=== PATIENT | female | born 1970 ===

== ENCOUNTER 2020-08-13 13:29 | Outpatient (REF) | payer OTHER, SELFPAY | END 2020-08-13 13:30 | disposition home or self-care (01) | LOC: HO.LAB 13:29 | PROVIDERS: Visit Provider Internal Medicine | DX: Z20.828 Contact with and (suspected) exposure to other viral communicable diseases (principal) | CPT/HCPCS: C9803; U0003 ==

== ENCOUNTER 2021-03-09 10:52 | Outpatient (REF) | payer OTHER, SELFPAY ==
--- NOTE | ~2021-03-09 | MM_ITS ---
EXAMINATION: MM SCREENING DIGITAL BREAST TOMOSYNTHESIS, BILATERAL CLINICAL INFORMATION: Screening. Asymptomatic. The lifetime risk of breast cancer based on the Tyrer-Cuzick Model is 7.5%. COMPARISON: Mammography: 10/09/2018 TECHNIQUE: Digital breast tomosynthesis is performed in both the craniocaudal and mediolateral oblique views along with computer-aided detection (CAD). Synthesized 2-D images are generated from the tomosynthesis. FINDINGS: The breasts are heterogeneously dense, which may obscure small masses (ACR BI-RADS breast composition Category c). No specific suspicious dominant mass or grouping of microcalcifications within the left breast is identified. Within the right breast, there are groupings of calcifications seen about the anterior aspect superiorly for which spot magnification views in craniocaudal and 90 degree mediolateral views are recommended. MM/MM tomosynthesis screening BI IMPRESSION: Right breast calcifications for further evaluation. ASSESSMENT: BI-RADS 0: Incomplete - Need Additional Imaging Evaluation. RECOMMENDATION: Spot magnification views anterior aspect of the right breast in craniocaudal and 90 degree mediolateral views. This patient's information was entered into a reminder system with a target due date for their next mammogram.
== END 2021-03-09 10:53 | disposition home or self-care (01) ==
LOC: HO.MAMMO 10:52
PROVIDERS: PCP Physician Assistant; Visit Provider Physician Assistant
DX: Z12.31 Encounter for screening mammogram for malignant neoplasm of breast (principal)
CPT/HCPCS: 77063; 77067

== ENCOUNTER 2021-04-19 21:50 | Emergency (ER) | payer OTHER, SELFPAY ==
[2021-04-19 21:59] VITALS: BP 160/70; PULSE 72; RESP 16; TEMP 37.1; O2SAT 98; BMI 30.9
== END 2021-04-19 23:50 | disposition left against medical advice (07) ==
PROVIDERS: Emergency Provider Emergency Medicine; PCP Physician Assistant
DX: R07.89 Other chest pain (principal)
CPT/HCPCS: 99282

== ENCOUNTER 2021-05-13 07:33 | Outpatient (REF) | payer OTHER, SELFPAY ==
[2021-05-13 08:12] LABS: Hematocrit 46.4 % (37-47); Hemoglobin 15.1 g/dl (12.0-16.0); Mean Corpuscular HGB Conc 32.5 g/dl (31.0-35.0); Mean Corpuscular Hemoglobin 29.4 pg (27.0-33.0); Mean Corpuscular Volume 90.4 fL (80-98); Mean Platelet Volume 9.2 fL (9.4-12.3); Platelet Count 214 X10*3/uL (160-400); Red Blood Count 5.13 X10*6/uL (4.20-5.50); Red Cell Distribution Width 12.8 % (11.0-16.0); White Blood Count 6.5 X10*3/uL (4.8-10.8)
[2021-05-13 08:34] LABS: Alanine Aminotransferase 16 U/L (0-31); Albumin Level 4.5 g/dL (3.5-5.0); Alkaline Phosphatase 52 U/L (39-117); Anion Gap 13 (12-20); Aspartate Amino Transferase 20 U/L (5-31); Bilirubin Total 0.4 mg/dL (0.0-1.0); Blood Urea Nitrogen 11 mg/dL (9-16); Calcium 9.8 mg/dL (8.4-10.2); Carbon Dioxide 29 mmol/L (22-29); Chloride 103 mmol/L (96-108); Cholesterol 193 mg/dL; Estimated Glomerular Filt Rate > 60; Glucose Fasting 112 mg/dL (60-99); HDL Cholesterol 38 mg/dL; Iron 102 mcg/dL (30-160); LDL Cholesterol Calculated 124 mg/dl; Percent Iron Saturation 34 % (15-50); Potassium 4.7 mmol/L (3.3-5.1); Sodium 140 mmol/L (135-145); Total Iron Binding Capacity 299 mcg/dL (228-428); Total Protein 6.8 g/dL (6.5-8.0); Triglycerides 157 mg/dL; Unsaturated Iron Binding 197 ug/dL
[2021-05-13 08:57] LABS: TSH reflex Free T4 2.77 uIU/mL (0.32-4.0); Vitamin D 25-OH Total 35.1 ng/mL (>30)
[2021-05-13 10:16] LABS: Creatinine Urine 38.49 mg/dL; Microalbumin Urine < 5.0 mg/L
[2021-05-15 05:42] LABS: Lyme Blot 0.97 index
[2021-05-15 11:27] LABS: Lyme Abs Screen EQUIVOCAL
[2021-05-18 17:11] LABS: 18 KD (IgG) Band NON-REACTIVE; 23 KD (IgG) Band NON-REACTIVE; 23 KD (IgM) Band REACTIVE; 28 KD (IgG) Band NON-REACTIVE; 30 KD (IgG) Band NON-REACTIVE; 39 KD (IgM) Band NON-REACTIVE; 41 KD (IgM) Band NON-REACTIVE; 45 KD (IgG) Band NON-REACTIVE; 58 KD (IgG) Band NON-REACTIVE; 66 KD (IgG) Band NON-REACTIVE; 93 KD (IgG) Band NON-REACTIVE; Lyme IgG Blot Interp NEGATIVE (NEGATIVE); Lyme IgM Blot Interp NEGATIVE (NEGATIVE)
== END 2021-05-13 07:34 | disposition home or self-care (01) ==
LOC: HO.LAB 07:33
PROVIDERS: Absent Provider Physician Assistant; PCP Physician Assistant; Visit Provider Nurse Practitioner Family
DX: Z01.84 Encounter for antibody response examination (principal); E78.5 Hyperlipidemia, unspecified; D50.9 Iron deficiency anemia, unspecified; E03.9 Hypothyroidism, unspecified; I10 Essential (primary) hypertension; R21 Rash and other nonspecific skin eruption
CPT/HCPCS: 36415; 80053; 80061; 82043; 82306; 83540; 84443; 85027; 86617; 86618

== ENCOUNTER 2021-06-13 10:02 | Outpatient (REF) | payer OTHER, SELFPAY ==
[2021-06-15 01:16] LABS: Lyme Abs Screen <0.90 index
== END 2021-06-13 10:03 | disposition home or self-care (01) ==
LOC: HO.LAB 10:02
PROVIDERS: PCP Physician Assistant; Visit Provider Nurse Practitioner Family
DX: R21 Rash and other nonspecific skin eruption (principal)
CPT/HCPCS: 36415; 86617; 86618

== ENCOUNTER 2021-10-13 10:39 | Emergency (ER) | payer OTHER, SELFPAY ==
--- NOTE | ~2021-10-13 | XR_ITS ---
EXAMINATION: XR CHEST CLINICAL INFORMATION: Pain, trauma. COMPARISON: None TECHNIQUE: 2 views of the chest were obtained. FINDINGS: Normal appearance of the cardiomediastinal silhouette. No focal airspace opacities, pleural effusions or pneumothorax. No acute osseous abnormalities. Soft tissue calcifications adjacent to the insertion site of the right supraspinatus tendon. XR/XR chest 2V IMPRESSION: No acute cardiopulmonary findings. No definite acute displaced osseous fractures. Soft tissue calcifications in the right shoulder suggesting the presence of calcific tendinosis. Correlate clinically.
[2021-10-13 10:52] VITALS: BP 142/72; PULSE 73; RESP 18; TEMP 36.3; O2SAT 100
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
== END 2021-10-13 11:52 | disposition home or self-care (01) ==
PROVIDERS: Emergency Provider Emergency Medicine; PCP Physician Assistant
DX: S16.1XXA Strain of muscle, fascia and tendon at neck level, initial encounter (principal); S20.212A Contusion of left front wall of thorax, initial encounter; V43.52XA Car driver injured in collision with other type car in traffic accident, initial encounter; I10 Essential (primary) hypertension; E78.5 Hyperlipidemia, unspecified; F17.200 Nicotine dependence, unspecified, uncomplicated; Y93.89 Activity, other specified; Y92.410 Unspecified street and highway as the place of occurrence of the external cause; Y99.9 Unspecified external cause status; R93.89 Abnormal findings on diagnostic imaging of other specified body structures; M75.31 Calcific tendinitis of right shoulder; Z79.02 Long term (current) use of antithrombotics/antiplatelets
CPT/HCPCS: 71046; 99283

== ENCOUNTER 2021-10-17 08:30 | Outpatient (RCR) | payer OTHER, SELFPAY ==
--- NOTE | 2021-10-17 09:57 | MHC.OT.DC ---
[address] [phone] F: [phone] Occupational Therapy Discharge Note Provider: Sky Gamboa MD Diagnosis: Left Dequervains tenosynovitis Date of Surgery: Date of Evaluation: 10/05/21 Date of Discharge: 10/17/21 Treatments to Date: 4 Cancellations to Date: 0 No Shows to Date: 0 Discharge Status: Patient Elected to Stop Recommend MD Follow-up Discharge Summary: t reports pain now more localized to wrist. Pt required re instruction and practice with ther ex,ROM and eccentric ex She has a forearm based thumb spica and has been instructed on wrist protection techniques with daily activities PT preferring to D/C OT , follow HEP for a week and call MD if not improved. Pain improved for 7 to 4 and now more localized to radial wrist. Electronically Signed By: Madelyn Squires OT CHT CLT Reviewed/agree with student documentation: N/A Therapist: Please Sign and return to therapist, thank you for your referral.
== END 2021-10-17 09:57 | disposition home or self-care (01) ==
LOC: HO.OT 08:30
PROVIDERS: PCP Physician Assistant; Visit Provider Internal Medicine
DX: M65.4 Radial styloid tenosynovitis [de Quervain] (principal)
CPT/HCPCS: 97033; 97035; 97110; 97165

== ENCOUNTER → 2021-11-16 11:03 | Outpatient (BNVA) | payer OTHER, SELFPAY | PROVIDERS: PCP Physician Assistant; Visit Provider Orthopaedic Surgery | DX: M65.4 Radial styloid tenosynovitis [de Quervain] (principal) | CPT/HCPCS: 20550; 99202; J1100 ==

== ENCOUNTER → 2021-12-14 11:35 | Outpatient (BNVA) | payer OTHER, SELFPAY | PROVIDERS: PCP Internal Medicine; Visit Provider Orthopaedic Surgery | DX: M65.4 Radial styloid tenosynovitis [de Quervain] (principal) | CPT/HCPCS: 99212 ==

== ENCOUNTER 2022-01-05 11:30 | Outpatient (REF) | payer OTHER, SELFPAY ==
--- NOTE | ~2022-01-05 | XR_ITS ---
EXAMINATION: XR HAND, LEFT. XR WRIST, LEFT. CLINICAL INFORMATION: Left hand/wrist pain COMPARISON: None TECHNIQUE: 3 views of the left hand and 4 views of the left wrist FINDINGS: Normal alignment. No fracture. No periarticular osteopenia, active erosions, or suspicious soft tissue calcifications. There are mild degenerative changes of the interphalangeal joints and the 1st CMC joint. XR/XR hand wrist LT IMPRESSION: Mild degenerative changes with no acute osseous abnormality or evidence of an active inflammatory arthritis.
== END 2022-01-05 11:31 | disposition home or self-care (01) ==
LOC: HO.XRAY 11:30
PROVIDERS: PCP Physician Assistant; Visit Provider Physician Assistant
DX: M65.4 Radial styloid tenosynovitis [de Quervain] (principal)
CPT/HCPCS: 73110; 73130

== ENCOUNTER 2022-05-02 07:14 | Outpatient (REF) | payer OTHER, SELFPAY ==
--- NOTE | ~2022-05-02 | MM_ITS ---
EXAMINATION: MM SCREENING DIGITAL BREAST TOMOSYNTHESIS, BILATERAL CLINICAL INFORMATION: Screening. Asymptomatic. The lifetime risk of breast cancer based on the Tyrer-Cuzick Model is 7.6%. COMPARISON: Mammography: 03/09/2021 and studies dating back to 10/09/2018. TECHNIQUE: Digital breast tomosynthesis is performed in both the craniocaudal and mediolateral oblique views along with computer-aided detection (CAD). Synthesized 2-D images are generated from the tomosynthesis. FINDINGS: The breasts are heterogeneously dense, which may obscure small masses (ACR BI-RADS breast composition Category c). There are stable right breast calcifications present. Within the deep aspect of the left breast along the nipple line on mediolateral oblique projection, there is a 5 mm question spiculated density 6.5 cm from the nipple, for which spot compression view is recommended. I do not definitely see a correlate on the craniocaudal view, however, by tomosynthesis this appears to lie within the lateral aspect of the left breast where there is a large amount of dense tissue present. MM/MM tomosynthesis screening BI IMPRESSION: Stable right breast calcifications. Density deep aspect of the left breast along nipple line on mediolateral oblique projection for further evaluation with spot compression view. ASSESSMENT: BI-RADS 0: Incomplete - Need Additional Imaging Evaluation. RECOMMENDATION: 1. Additional views of the left breast. 2. Targeted ultrasound if warranted after review of the additional views. 3. Radiology department staff will contact the patient for additional imaging. This patient's information was entered into a reminder system with a target due date for their next mammogram.
[2022-05-02 08:05] LABS: Hematocrit 47.1 % (37.0-47.0); Hemoglobin 15.4 g/dl (12.0-16.0); Mean Corpuscular HGB Conc 32.7 g/dl (31.0-35.0); Mean Corpuscular Hemoglobin 28.5 pg (27.0-33.0); Mean Corpuscular Volume 87.1 fL (80.0-98.0); Mean Platelet Volume 9.6 fL (9.4-12.3); Platelet Count 229 X10*3/uL (160-400); Red Blood Count 5.41 X10*6/uL (4.20-5.50); Red Cell Distribution Width 12.8 % (11.0-16.0); White Blood Count 6.6 X10*3/uL (4.8-10.8)
[2022-05-02 08:21] LABS: Estimated Average Glucose 114 mg/dL; Hemoglobin A1c % 5.6 %
[2022-05-02 08:32] LABS: Alanine Aminotransferase 15 U/L (0-31); Albumin Level 4.4 g/dL (3.5-5.0); Alkaline Phosphatase 57 U/L (39-117); Anion Gap 13 (12-20); Aspartate Amino Transferase 21 U/L (5-31); Bilirubin Total 0.3 mg/dL (0.0-1.0); Blood Urea Nitrogen 11 mg/dL (9-16); Calcium 9.3 mg/dL (8.4-10.2); Carbon Dioxide 29 mmol/L (22-29); Chloride 103 mmol/L (96-108); Cholesterol 184 mg/dL; Estimated Glomerular Filt Rate > 60; Glucose Fasting 107 mg/dL (60-99); HDL Cholesterol 39 mg/dL; LDL Cholesterol Calculated 117 mg/dl; Potassium 4.4 mmol/L (3.3-5.1); Sodium 141 mmol/L (135-145); Total Protein 6.8 g/dL (6.5-8.0); Triglycerides 140 mg/dL
[2022-05-02 08:46] LABS: Creatinine Urine 8.16 mg/dL; Microalbumin Urine < 5.0 mg/L
[2022-05-02 08:55] LABS: TSH reflex Free T4 3.29 uIU/mL (0.32-4.0)
== END 2022-05-02 07:15 | disposition home or self-care (01) ==
LOC: HO.MAMMO 07:14
PROVIDERS: PCP Physician Assistant; Visit Provider Physician Assistant
DX: I10 Essential (primary) hypertension (principal); E78.00 Pure hypercholesterolemia, unspecified; E03.9 Hypothyroidism, unspecified; Z12.31 Encounter for screening mammogram for malignant neoplasm of breast
CPT/HCPCS: 36415; 77063; 77067; 80053; 80061; 82043; 83036; 84443; 85027

== ENCOUNTER 2022-05-10 10:48 | Outpatient (REF) | payer OTHER, SELFPAY ==
--- NOTE | ~2022-05-10 | MM_ITS ---
EXAMINATION: MM DIAGNOSTIC DIGITAL BREAST TOMOSYNTHESIS, LEFT CLINICAL INFORMATION: Density about the deep aspect of the left breast along nipple line on mediolateral oblique projection. COMPARISON: Mammography: May 02, 2022 and studies dating back to October 09, 2018 TECHNIQUE: Digital breast tomosynthesis is performed. 2D images are generated from the tomosynthesis. The following views are obtained: 90 degree mediolateral view and spot compression mediolateral oblique view. FINDINGS: The breasts are heterogeneously dense, which may obscure small masses (ACR BI-RADS breast composition Category c). Additional views show no significant mass, architectural abnormality, or abnormal calcifications. Results are discussed with the patient at time of visit. MM/MM tomosynthesis added views L IMPRESSION: No mammographic evidence of malignancy. ASSESSMENT: BI-RADS 1: Negative RECOMMENDATION: Routine annual mammography screening. This patient's information was entered into a reminder system with a target due date for their next mammogram.
== END 2022-05-10 10:49 | disposition home or self-care (01) ==
LOC: HO.MAMMO 10:48
PROVIDERS: Visit Provider Physician Assistant
DX: R92.2 Inconclusive mammogram (principal)
CPT/HCPCS: 77061; 77065

== ENCOUNTER 2022-06-02 15:30 | Outpatient (REF) | payer OTHER, SELFPAY ==
--- NOTE | ~2022-06-02 | CT_ITS ---
EXAMINATION: CT CHEST SCREENING CLINICAL INFORMATION: Current smoker. 30 pack year history. COMPARISON: Previous chest x-ray September 2021 TECHNIQUE: Multidetector volumetric CT imaging of the chest is performed without contrast using low dose technique. Additional 2D coronal and sagittal reformatted images and axial 3D maximum intensity projection (MIP) images are generated on the CT workstation. This CT examination was performed using dose optimization techniques as appropriate, variously including the following: *Automated exposure control *Adjustment of mA and/or kV according to patient size (this includes techniques or standardized protocols for targeted exams where dose is matched to indication/reason for exam; i.e. extremities or head) *Use of iterative reconstruction technique DLP: 163 mGy-cm FINDINGS: LUNGS: There is a 2 x 6 mm peripheral or subpleural right lower lobe nodule adjacent to the major fissure probably representing a subpleural lymph node axial image 213 series 5. There is minimal scarring or subsegmental atelectasis in the right middle lobe and lingula at the lung bases. There is mild emphysema. No evidence of interstitial lung disease or bronchiectasis. No endobronchial or endotracheal lesion. MEDIASTINUM: Normal heart size. No pericardial effusion or coronary artery calcification. Upper normal size ascending thoracic aorta. Small mediastinal lymph nodes. CORONARY ARTERY CALCIFICATION: None visualized on this study. PLEURA: There is no pleural effusion. No pleural mass or thickening. AXILLA: No lymphadenopathy. UPPER ABDOMEN: Unremarkable OSSEOUS STRUCTURES: Unremarkable. CT/CT lung screening IMPRESSION: Mild emphysema. 2 x 6 mm right lower lobe nodule probably representing a subpleural lymph node. Upper normal-size ascending thoracic aorta. ASSESSMENT: Lung-RADS category 2: Benign RECOMMENDATION: Annual low-dose chest CT follow-up recommended.
== END 2022-06-02 15:31 | disposition home or self-care (01) ==
LOC: HO.CT 15:30
PROVIDERS: Visit Provider Physician Assistant Medical
DX: Z12.2 Encounter for screening for malignant neoplasm of respiratory organs (principal); F17.210 Nicotine dependence, cigarettes, uncomplicated
CPT/HCPCS: 71271; G0296

== ENCOUNTER → 2022-12-26 11:55 | Outpatient (BNVA) | payer OTHER, SELFPAY | PROVIDERS: PCP Physician Assistant; Visit Provider Orthopaedic Surgery | DX: M65.4 Radial styloid tenosynovitis [de Quervain] (principal); M25.531 Pain in right wrist | CPT/HCPCS: 20550; 99212; J1100 ==

== ENCOUNTER 2023-03-21 07:46 | Outpatient (REF) | payer OTHER, SELFPAY ==
--- NOTE | ~2023-03-21 | US_ITS ---
EXAMINATION: US ABDOMEN COMPLETE CLINICAL INFORMATION: Right upper quadrant pain. COMPARISON: None available. TECHNIQUE: Real-time imaging of the abdominal viscera. Limited visualization due to bowel gas and body habitus. FINDINGS: PANCREAS: Limited visualization of pancreatic tail and head. Imaged portion of pancreatic body is unremarkable. ABDOMINAL AORTA: Nonaneurysmal. INFERIOR VENA CAVA: Visualized portions are normal. LIVER: Diffuse increase in echogenicity of the liver is characteristic of primary hepatocellular disease, possibly due to hepatic steatosis and further limits visualization. GALLBLADDER: Surgically absent. COMMON BILE DUCT: Measures 0.89 cm in diameter. RIGHT KIDNEY: No hydronephrosis. No renal calculi. Limited visualization. The kidney measures 11.3 cm in maximum dimension. LEFT KIDNEY: Left renal 2.2 x 2.0 x 2.9 cm midpole cyst appears simple. There is no indication for follow-up imaging. Limited visualization. No hydronephrosis or renal calculi. The kidney measures 11.5 cm in maximum dimension. SPLEEN: Normal. The spleen measures 8.8 cm in maximum dimension. FREE FLUID: None. US/US abdomen complete IMPRESSION: 1. Diffuse increase in echogenicity of the liver is characteristic of primary hepatocellular disease, possibly due to hepatic steatosis and further limits visualization. 2. Gallbladder surgically absent. 3. Limited visualization due to bowel gas and body habitus. CT scan could be considered for better visualization.
[2023-03-21 08:24] LABS: Hematocrit 44.7 % (37.0-47.0); Hemoglobin 14.7 g/dl (12.0-16.0); Mean Corpuscular HGB Conc 32.9 g/dl (31.0-35.0); Mean Corpuscular Hemoglobin 29.5 pg (27.0-33.0); Mean Corpuscular Volume 89.8 fL (80.0-98.0); Mean Platelet Volume 9.5 fL (9.4-12.3); Platelet Count 234 X10*3/uL (160-400); Red Blood Count 4.98 X10*6/uL (4.20-5.50); Red Cell Distribution Width 12.8 % (11.0-16.0); White Blood Count 6.6 X10*3/uL (4.8-10.8)
[2023-03-21 09:45] LABS: Alanine Aminotransferase 11 U/L (0-31); Albumin Level 4.1 g/dL (3.5-5.0); Alkaline Phosphatase 51 U/L (39-117); Anion Gap 11 (12-20); Aspartate Amino Transferase 15 U/L (5-31); Bilirubin Total 0.7 mg/dL (0.0-1.0); Blood Urea Nitrogen 10 mg/dL (9-16); Calcium 9.5 mg/dL (8.4-10.2); Carbon Dioxide 29 mmol/L (22-29); Chloride 105 mmol/L (96-108); Cholesterol 154 mg/dL; Estimated Glomerular Filt Rate > 60; Glucose Fasting 99 mg/dL (60-99); HDL Cholesterol 38 mg/dL; LDL Cholesterol Calculated 94 mg/dl; Potassium 4.3 mmol/L (3.3-5.1); Sodium 141 mmol/L (135-145); Total Protein 6.8 g/dL (6.5-8.0); Triglycerides 114 mg/dL
[2023-03-21 10:01] LABS: TSH reflex Free T4 1.09 uIU/mL (0.32-4.0)
== END 2023-03-21 07:47 | disposition home or self-care (01) ==
LOC: HO.US 07:46
PROVIDERS: PCP Physician Assistant; Visit Provider Physician Assistant
DX: R10.11 Right upper quadrant pain (principal); I10 Essential (primary) hypertension; E78.00 Pure hypercholesterolemia, unspecified; E03.9 Hypothyroidism, unspecified
CPT/HCPCS: 36415; 76700; 80053; 80061; 82043; 84443; 85027

== ENCOUNTER 2023-04-25 14:00 | Outpatient (RCR) | payer OTHER, SELFPAY ==
--- NOTE | 2023-04-18 12:59 | MHC.PT.EP ---
[facility] [place] [facility] [place] [facility] [place] [facility] [address] Antonette Adame [address] [phone] F: [phone] F: [phone] F: [phone] F: [phone] Physical Therapy Plan of Care Date of Evaluation: Date of Surgery: Diagnosis: Right upper quadrant pain (MD Dx) Questionable if pain generator is muscloskeletal in nature Assessment: Patient is a pleasant 52 y.o. 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 There is palpable pain in R UQ inferior to rib cage, no rebound pain, does reproduce with increased slouched sitting. 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 I am not convinced her sxs are musculoskeletal in nature, but do feel she would benefit from PT for a couple sessions to see if improving her posture and practicing good body mechanics while targeting core strengthening and stretching R hip and low back to see if it does make a change in her familiar symptoms. If not, it is most likely that there is a different pain generation referred pain, would benefit from further tests and images such as CT scan to look at ovaries, kidney, liver, etc. Patient impairments include pain, limited lumbar AROM, weakness in core and glutes, poor posture, poor body mechanics. Patient current functional limitations are pain with prolonged sitting and driving. Patient will benefit from skilled PT to determine if her sxs are musculoskeletal in nature. Frequency and Duration: The patient will be seen 1x/week for 4 weeks Short Term Goals: 2 weeks Patient presents without slouched sitting and is able to self correct to maintain neutral lumbar spine. Patient demonstrates consistency and independence with HEP to self manage symptoms. 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 Patient demonstrates R hip flexion 5/5 strength without pain. Treatment Plan: Modalities to reduce pain, spasms and effusion. Manual therapy to restore motion and function. Therapeutic exercise to improve strength and flexibility. Neuromuscular re-education for posture and balance. Therapeutic activities to return to functional activities of daily living. Electronically signed by: Griselda Larry, PT, DPT Please sign and return to therapist. Thank you for your referral.
--- NOTE | 2023-06-26 10:31 | MHC.PT.DC ---
[facility] [place] [facility] [place] [facility] [place] [facility] [address] Antonette Adame [address] [phone] F: [phone] F: [phone] F: [phone] F: [phone] Physical Therapy Discharge Report Diagnosis: Right upper quadrant pain ( Dx) Questionable if pain generator is muscloskeltal in nature Date of Surgery: Date of Evaluation: 04/18/23 Date of Discharge: 06/26/23 Treatments to Date: 2 Cancellations to Date: 1 No Shows to Date: Discharge Status: Independent with HEP Patient Elected to Stop Discharge Summary: Patient ceased attending PT on her own accord after her visit on 04/25/23. The following is from her PT assessment on 04/25/23: She benefited from explainations throughout session for reasons behind each exercise, what it will target and how it will benefit her condition. She wanted to work on crunches and other flexion biased movements for core strengthening but I educated her that flexion tends to increase both LBP and her R UQ pain so out goal is to promote extension of her back and also core stabilization in neutral posture. She had difficulty performing and tolerating some exercises due to pain in both wrists and in R thumb, so I modified some exercises. Heat was utilzied end of sessions to R UQ as she reports some soreness. She is discharged from PT at this time as she ceased attending. Electronically signed by: Griselda Larry, PT, DPT Please sign and return to therapist. Thank you for your referral.
== END 2023-07-13 08:59 | disposition home or self-care (01) ==
LOC: HO.PT 14:00
PROVIDERS: PCP Physician Assistant; Visit Provider Physician Assistant
DX: R10.11 Right upper quadrant pain (principal); R10.12 Left upper quadrant pain
CPT/HCPCS: 97110; 97161; 97530

== ENCOUNTER 2023-05-08 09:29 | Outpatient (REF) | payer OTHER, SELFPAY | END 2023-05-08 09:30 | disposition home or self-care (01) | LOC: HO.MAMMO 09:29 | PROVIDERS: PCP Physician Assistant; Visit Provider Physician Assistant | DX: Z12.31 Encounter for screening mammogram for malignant neoplasm of breast (principal) | CPT/HCPCS: 77063; 77067 ==

== ENCOUNTER → 2023-05-08 09:30 | Outpatient (BNV) | payer OTHER, SELFPAY | PROVIDERS: PCP Physician Assistant; Visit Provider Radiology Diagnostic Radiology | DX: Z12.31 Encounter for screening mammogram for malignant neoplasm of breast (principal) | CPT/HCPCS: 77063; 77067 ==

== ENCOUNTER 2023-07-09 10:27 | Outpatient (AMB) | payer OTHER, SELFPAY ==
[2023-07-09 10:33] VITALS: BP 110/72; PULSE 74; RESP 16; O2SAT 98; BMI 30.3
--- NOTE | 2023-07-09 10:33 | MHC.PC.OV ---
Vital Signs 07/09/23 10:33 Height 5 ft Weight 155 lb 6 oz BMI 30.3 BP 110/72 Blood Pressure Location Lt brachial Position Sitting Respiration 16 Pulse 74 Pulse Source Pulse Oximeter Pulse Oximetry (%) 98 Oxygen Delivery Method Room Air Intake Visit Reasons: 4 Month f/u HLD/ Smoking Intake Note: Pt is here for 4 months F/u. 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 Accompanied by: Self / Same As Patient Allergies Rovamycin Allergy (Severe, Uncoded 07/09/23 10:47) Unknown Medication List - Last Reconciled 07/09/23 by Alon Reaves PA-C alprazolam 0.25 mg PO BEDTIME PRN 7 days bisoprolol fumarate 5 mg PO DAILY 90 days diclofenac sodium 1% (Arthritis Pain (diclofenac)) 2 grams topical QID 30 days ibuprofen 400 mg PO TID PRN levothyroxine 100 mcg PO DAILY 90 days melatonin 10 mg PO BEDTIME PRN 30 days omeprazole 20 mg PO DAILY 90 days rosuvastatin 5 mg PO DAILY 90 days sennosides (senna) 17.2 mg (2 x 8.6 mg) PO BEDTIME PRN 30 days Tobacco use date assessed: 03/05/23 Dental Screening Dental Screen Date: 07/09/23 Did you have a dental visit in the last 12 months?: Yes Did you have a dental problem in the last 6 months where you did not have access to dental care?: No Was dental information given to patient?: Patient has dentist HPI 4 Month f/u HLD/ Smoking HPI Details Patient is a 52-year-old female here today for follow-up visit? ? Patient has a past medical history significant for GERD, hypothyroidism, tobacco use disorder, obesity, HTN, hyperlipidemia, cervical spine disc disease.' Concerns--> report having an intermittent in her RUQ abd, she attributes this to her constipation. She has previously had a cholecystectomy. Has gotten ultrasound of her abdomen that did show fatty liver disease. Otherwise no evidence on ultrasound that can explain her right lower quadrant abdominal pain. Does have constipation to which she uses senna and probiotics which have been helpful. --she also reports developed dark spots over her chest and lower extremities.. . .. Tobacco use disorder:? She does understand she needs to quit smoking though has found very difficult.? Has tried nicotine patches and gum in the past without much success.? Has seen lung cancer screening program will send for low-dose CT of chest showing fairly benign results, does have pulmonary nodule on needs repeat in 1 year.. --Does seem to have some hemosiderin staining over her lower extremities likely due to her years of smoking. Advised on compression socks to be used during the day. .. Abnormal mammogram:? Patient did have calcifications on mammogram and did get repeat mammogram with benign findings. .. Tachycardia:? Heart rate today in office normal, does use beta-yuliana for her heart rate with good effect. Also blood pressure acceptable today in office.? Does not monitor blood pressure at home .. Hyperlipidemia:? Continues on low-dose rosuvastatin without side effect, most recent lipid panel acceptable with LDL below 130 .. Hypothyroidism:? Continues on levothyroxine 100 mcg and most recent TSH within normal range. 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 Obesity (BMI 30-39.9) GERD (gastroesophageal reflux disease) Hypothyroidism HTN (hypertension) HLD (hyperlipidemia) Surgical History History of section History of cholecystectomy History of carpal tunnel release Family History Father Prostate cancer Mother Myocardial infarction Brother CAD (coronary artery disease) Social History Housing: Apartment Alcohol intake: never Patient Tobacco Use Status: Current everyday Tobacco user Tobacco use type: Cigarette Cigarette Packs Per Day: 1 Years Smoked: (onset 18yo, 1ppd x 33yrs, 30pyh) e-Cigarette/Vaping Use: Never Used Second Hand Smoke Exposure: Yes service: No Current occupational status: employed Current occupation: [employer]/rt hand Cognitive needs: No Hearing needs: No Vision needs: No Questionnaire Thrive Questionnaire Date Thrive assessed: 09/29/21 EMERSON-7 AMB Questionnaire EMERSON-7 Date EMERSON - 7 assessed: 03/05/23 Source: Developed by Drs. Efe Lawrence, Alissa Pérez, Kiran Marcus and colleagues, with an educational miguel from [employer]. Review of Systems Const Denies headache(s) Eyes Denies loss of vision ENT Denies vertigo, Denies dizziness, Denies headache(s) and Denies sore throat Card Denies chest pain, Denies leg edema and Denies lightheadedness Resp Denies cough, Denies hemoptysis and Denies wheezing GI Denies abdominal pain, Denies melena, Denies constipation, Denies diarrhea and Denies vomiting Denies urinary frequency, Denies dysuria and Denies urinary urgency Musc Denies arthralgias, Denies joint swelling, Denies numbness and Denies tingling Neuro Denies Abnormal speech present, Denies behavioral changes, Denies vertigo, Denies dizziness, Denies headache(s), Denies loss of vision, Denies memory loss, Denies numbness and Denies tingling Psych Denies anxiety, Denies behavioral changes, Denies depression, Denies memory loss and Denies panic attacks Neal/Lymph Denies easy bleeding and Denies easy bruising Aller/Immun Denies wheezing Physical exam (Primary Care) Vital Signs: Last Vital Signs Pulse 74 07/09/23 10:33 Resp 16 07/09/23 10:33 BP 110/72 07/09/23 10:33 Pulse Ox 98 07/09/23 10:33 Oxygen Delivery Method Room Air 07/09/23 10:33 BMI result Body Mass Index 30.3 BMI Assessment/Plan discussion: High Tobacco/Smoking Status: Tobacco use Status Tobacco use date assessed 03/05/23 07/09/23 10:33 Patient Tobacco Use Status Current everyday Tobacco 07/09/23 10:33 Tobacco use type Cigarette 07/09/23 10:33 e-Cigarette/Vaping Use Never Used 07/09/23 10:33 Are you ready to quit: No Tobacco cessation counseling provided: Yes Relapse Prevention: discussed the importance of a supportive environment, discussed negative mood or depression after quitting, weight gain after smoking is common and discussed dietary, exercise and/or lifestyle changes Number of minutes spent counselin CPT code: 76334 - 4-10 Minutes Thrive Assessment: Date of Thrive Assessment Date Thrive assessed 09/29/21 07/09/23 10:33 Const Other: obese General: healthy appearing, no acute distress, alert and awake Nutritional Appearance: well nourished Orientation/consciousness: oriented to person, oriented to place and oriented to time HENMT Ears: TM's normal bilaterally General nose exam: Normal nasal mucous membranes and turbinates present Eyes Conjunctivae: conjunctivae normal Sclerae: sclerae normal Pupils: Equal, round and reactive pupils present Neck Neck: Yes no lymphadenopathy and Yes no JVD Thyroid: Thyroid normal Carotids: no bruits Resp Effort & Inspection: normal respiratory effort and not tachypneic Auscultation: no crackles, no rales, no rhonchi and no wheezes Cardio Rate: regular rate Rhythm: regular rhythm Heart sounds: no murmurs and normal S1 and S2 GI Palpation (GI): Soft to palpation, nontender, no hepatomegaly and no splenomegaly Auscultation: normal bowel sounds Skin General skin exam: no rashes or lesions noted and dry skin Neuro General: oriented to person, oriented to place and oriented to time Cranial nerves: Yes Equal, round and reactive pupils present Speech: No Abnormal speech present Gait exam (Neuro): Normal gait present Motor exam (neuro): no tremor noted Extrem Right upper extremity: full ROM Left upper extremity: full ROM Right lower extremity: full ROM; no edema Left lower extremity: full ROM; no edema Psych Mental Status: mental status grossly normal Speech and movement: Normal speech and movement present Affect: normal affect Attitude: cooperative Thought process: Normal thought process present Assessment and Plan Assessment & Plan (1) HTN (hypertension): Code(s): I10 - Essential (primary) hypertension Qualifiers: Hypertension type: unspecified Qualified Code(s): I10 - Essential (primary) hypertension Plan: Has been well controlled with beta-yuliana, Goal blood pressure to be below 140/90 (2) HLD (hyperlipidemia): Code(s): E78.5 - Hyperlipidemia, unspecified Qualifiers: Hyperlipidemia type: pure hypercholesterolemia Qualified Code(s): E78.00 - Pure hypercholesterolemia, unspecified Plan: Patient continues on statin therapy without side effect. Unfortunately continues to smoke and does understand she needs to quit. Goal total cholesterol be below 200 and LDL below 130 (3) Hypothyroidism: Code(s): E03.9 - Hypothyroidism, unspecified Qualifiers: Hypothyroidism type: acquired Qualified Code(s): E03.9 - Hypothyroidism, unspecified Plan: Patient continues on daily use of levothyroxine 100 mcg. Will continue to follow TSH to assure normal. (4) RUQ abdominal pain: Code(s): R10.11 - Right upper quadrant pain Plan: Patient's ultrasound with evidence of fatty liver disease. Otherwise unremarkable ultrasound. Liver enzymes normal. Will try to treat her constipation. (5) Nicotine dependence, cigarettes, uncomplicated: Comment: (onset 18yo, 1ppd x 33yr, 30pyh) Code(s): F17.210 - Nicotine dependence, cigarettes, uncomplicated Plan: Patient does understand she needs to quit smoking. Offered her nicotine replacement though she declines. (6) Tachycardia: Code(s): R00.0 - Tachycardia, unspecified Plan: Heart rates have been stable on current dose of beta-yuliana. (7) Lower extremity edema: Code(s): R60.0 - Localized edema Plan: Will supply patient with paper Rx for medical compression socks (8) Obese: Code(s): E66.9 - Obesity, unspecified Qualifiers: Obesity type: due to excess calories Obesity classification: adult class 1 (BMI 30 - 34.9) Serious obesity comorbidity presence: without serious comorbidity Body mass index: BMI 30.0-30.9 Qualified Code(s): E66.09 - Other obesity due to excess calories; Z68.30 - Body mass index [BMI] 30.0-30.9, adult Plan: She does understand her BMI is slightly over 30 will work on being more physically active and adapting to better eating habits to reduce her weight Orders: Orders Microalbumin, Random (w Creat) Today I10 - Essential (primary) hypertension TSH reflex Free T4 Today E03.9 - Hypothyroidism, unspecified Comprehensive [place]. Panel Fast Today I10 - Essential (primary) hypertension Lipid Panel Today E78.00 - Pure hypercholesterolemia, unspecified Vitamin D 25-OH Total Today E03.9 - Hypothyroidism, unspecified Medications: New compr.stocking,knee,long,large As directed 2 ea 0RF R60.0 - Localized edema simethicone (Gas Relief (simethicone)) 80 mg PO BID-QID 15 days PRN 60 tabs 4RF abdominal distention Refilled levothyroxine 100 mcg PO DAILY 90 days 90 tabs 2RF E03.9 - Hypothyroidism, unspecified melatonin 10 mg PO BEDTIME 30 days PRN 30 tabs 2RF sleep G47.00 - Insomnia, unspecified sennosides (senna) 17.2 mg (2 x 8.6 mg) PO BEDTIME 30 days PRN 60 tabs 4RF constipation R10.11 - Right upper quadrant pain Coding Level of Care Code Est Pt Level 4 (48215) Diagnoses Hypertension, unspecified type I10 Hypertension type: unspecified Pure hypercholesterolemia E78.00 Hyperlipidemia type: pure hypercholesterolemia Acquired hypothyroidism E03.9 Hypothyroidism type: acquired RUQ abdominal pain R10.11 Nicotine dependence, cigarettes, uncomplicated F17.210 Tachycardia R00.0 Lower extremity edema R60.0 Class 1 obesity due to excess calories without serious comorbidity with body mass index (BMI) of 30.0 to 30.9 in adult E66.09; Z68.30 Obesity type: due to excess calories Obesity classification: adult class 1 (BMI 30 - 34.9) Serious obesity comorbidity presence: without serious comorbidity Body mass index: BMI 30.0-30.9 Additional Codes Vital Signs *Quality* - CPT code: 54736 - 4-10 Minutes ([id number])
== END 2023-07-09 11:18 | disposition home or self-care (01) ==
PROVIDERS: PCP Physician Assistant; Visit Provider Physician Assistant
DX: I10 Essential (primary) hypertension (principal); E78.00 Pure hypercholesterolemia, unspecified; E03.9 Hypothyroidism, unspecified; R10.11 Right upper quadrant pain; F17.210 Nicotine dependence, cigarettes, uncomplicated; R00.0 Tachycardia, unspecified; R60.0 Localized edema; E66.09 Other obesity due to excess calories; Z68.30 Body mass index [BMI] 30.0-30.9, adult
CPT/HCPCS: 99214

== ENCOUNTER 2023-08-27 10:02 | Outpatient (REF) | payer OTHER, SELFPAY ==
--- NOTE | ~2023-08-27 | CT_ITS ---
EXAMINATION: CT CHEST LOW-DOSE SCREENING WITHOUT CONTRAST HISTORY: Asymptomatic patient meeting criteria for lung screening. No history of lung carcinoma PATIENT PACK-YEAR HISTORY: 28 Current Smoker: Yes If former smoker, years since quitting: Not applicable COMPARISON: None available. TECHNIQUE: Multidetector volumetric non-contrast CT imaging of the chest was obtained on a Definition 64 scanner using low dose screening CT technique. Axial thin section 0.625 mm reformations in soft tissue and lung windows were obtained. Sagittal and coronal reformations were obtained. Axial MIP images were also created and reviewed. RECONSTRUCTED WIDTH: 1.25 mm x 1.[address] examination was performed using dose optimization techniques as appropriate, variously including the following: *Automated exposure control *Adjustment of mA and/or kV according to patient size (this includes techniques or standardized protocols for targeted exams where dose is matched to indication/reason for exam; i.e. extremities or head) *Use of iterative reconstruction technique TOTAL EXAM DLP: 36.23 mGy-cm CTDIvol: 1.21 mGy FINDINGS: LUNGS: Lungs bilaterally symmetrically expanded. Oblique sagittal atelectasis is seen in the left lingular lobe inferior segment. No effusion or pneumothorax. Central airways patent. -Nodule #1 (Series 6, image 193): 3 x 6 mm, mean diameter of 4.3 mm solid juxtapleural nodule, anterior border of right lower lobe superior segment attached to the right major fissure, previously 2 x 6 mm, mean diameter of 4 mm. LYMPHATIC STRUCTURES: No mediastinal, hilar or axillary adenopathy or free fluid collection. THYROID GLAND: Unremarkable to the extent seen. CARDIOVASCULAR STRUCTURES: Borderline ascending thoracic aortic fusiform aneurysm is seen measuring 4.1 cm in AP diameter, 4.0 cm in width. Cardiac size normal. Mild coronary artery calcifications. No pericardial effusion. UPPER ABDOMEN: Included portions of the solid organs in the upper abdomen unremarkable on noncontrast imaging. Surgical clips are seen in right upper quadrant. OSSEOUS STRUCTURES: No suspicious focal findings. SPINAL COMPRESSION: Absent. CT/CT lung screening IMPRESSION: No findings suspicious for malignancy/pulmonary nodule(s)/other. LUNG-RADS CATEGORY ASSESSMENT: 2: Benign INCIDENTAL FINDINGS (S CATEGORY): Finding: No incidental findings. Significance category: Normal or normal variant. RECOMMENDATION: Low dose lung CT. overall in 1 year. Visual estimate of coronary calcified plaque burden: Low. However, this exam cannot replace a dedicated cardiac CT calcium score for accurate assessment.
== END 2023-08-27 10:03 | disposition home or self-care (01) ==
LOC: HO.CT 10:02
PROVIDERS: PCP Physician Assistant; Visit Provider Physician Assistant Medical
DX: Z12.2 Encounter for screening for malignant neoplasm of respiratory organs (principal); F17.210 Nicotine dependence, cigarettes, uncomplicated
CPT/HCPCS: 71271

== ENCOUNTER 2023-11-08 08:29 | Outpatient (REF) | payer OTHER, SELFPAY ==
[2023-11-08 09:22] LABS: Microalbum/Creatinine Ratio Ur 8.7 ug/mg cr (<30)
[2023-11-08 09:33] LABS: Alanine Aminotransferase 12 U/L (0-31); Albumin Level 4.4 g/dL (3.5-5.0); Alkaline Phosphatase 55 U/L (39-117); Anion Gap 13 (12-20); Aspartate Amino Transferase 16 U/L (5-31); Bilirubin Total 0.4 mg/dL (0.0-1.0); Blood Urea Nitrogen 14 mg/dL (9-16); Calcium 9.7 mg/dL (8.4-10.2); Carbon Dioxide 31 mmol/L (22-29); Chloride 103 mmol/L (96-108); Cholesterol 168 mg/dL (<200); Estimated Glomerular Filt Rate > 60; Glucose Fasting 114 mg/dL (60-99); HDL Cholesterol 41 mg/dL (>40); LDL Cholesterol Calculated 105 mg/dL (<100); Potassium 4.6 mmol/L (3.3-5.1); Sodium 142 mmol/L (135-145); Total Protein 7.1 g/dL (6.5-8.0); Triglycerides 112 mg/dL (<150)
[2023-11-08 09:50] LABS: TSH reflex Free T4 1.45 uIU/mL (0.32-4.0)
== END 2023-11-08 08:30 | disposition home or self-care (01) ==
LOC: HO.LAB 08:29
PROVIDERS: PCP Physician Assistant; Visit Provider Physician Assistant
DX: I10 Essential (primary) hypertension (principal); E78.00 Pure hypercholesterolemia, unspecified; E03.9 Hypothyroidism, unspecified
CPT/HCPCS: 36415; 80053; 80061; 82043; 82306; 82570; 84443

== ENCOUNTER 2024-02-06 10:29 | Outpatient (AMB) | payer OTHER, SELFPAY ==
[2024-02-06 10:34] VITALS: BP 108/76; PULSE 74; O2SAT 96; BMI 30.9
--- NOTE | 2024-02-06 10:34 | A.OFFPC_ITS ---
Vital Signs 3 02/06/24 10:34 Height 5 ft Weight 158 lb BMI 30.9 BP 108/76 Blood Pressure Location Lt brachial Position Sitting Pulse 74 Pulse Source Pulse Oximeter Pulse Oximetry (%) 96 Oxygen Delivery Method Room Air Intake Visit Reasons: PE- NEEDS PHQ9 +THRIVE Intake Note: Patient is here today for a physical. Interactive Marketing Strategist Required: No Accompanied by: Self / Same As Patient Allergies Rovamycin Allergy (Severe, Uncoded 02/06/24 10:46) Unknown Medication List - Last Reconciled 02/06/24 by Alon Reaves PA-C alprazolam 0.25 mg PO BEDTIME PRN 7 days bisoprolol fumarate 5 mg PO DAILY 90 days compr.stocking,knee,long,large As directed ibuprofen 400 mg PO TID PRN levothyroxine 100 mcg PO DAILY 90 days rosuvastatin 5 mg PO DAILY 90 days sennosides (senna) 17.2 mg (2 x 8.6 mg) PO BEDTIME PRN 30 days simethicone (Gas Relief (simethicone)) 80 mg PO BID-QID PRN 15 days Tobacco use date assessed: 02/06/24 Dental Screening Dental Screen Date: 02/06/24 Did you have a dental visit in the last 12 months?: Yes Did you have a dental problem in the last 6 months where you did not have access to dental care?: No Was dental information given to patient?: Patient has dentist HPI PE- NEEDS PHQ9 +THRIVE 2 HPI0 Details Patient is a 53-year-old female here today for routine annual physical ? Patient has a past medical history significant for GERD, hypothyroidism, tobacco use disorder, obesity, Thoracic aneurysm, HTN, hyperlipidemia, cervical spine disc disease.' Concerns--> report having an intermittent pain in her right mid abd, she attributes this to her constipation. She has previously had a cholecystectomy. Has gotten ultrasound of her abdomen that did show fatty liver disease. She has done physical therapy though has not been effective for her. She reports the pain has not gotten worse though has not gone away in nearly 9 months . She denies any issues with diarrhea or changes in stool patterns. She has not gotten any recent colonoscopy. Otherwise no evidence on ultrasound that can explain her right lower quadrant abdominal pain. Does have constipation to which she uses senna and probiotics which have been helpful. PLAN: Will try for CT of abdomen evaluate for hernia. Also reports having Left shoulder pain, having decreased ROM . She can not recall any acute traumatic injury to her left shoulder. Thoracic aneurysm: does to have a 4.1 cm, she is now followed by cardio vascular surgeon at [facility] and will be undergoing surveillance imaging .. Tobacco use disorder:? She does understand she needs to quit smoking though has found very difficult.? Has tried nicotine patches and gum in the past without much success.? Has seen lung cancer screening program will send for low-dose CT of chest showing fairly benign results, does have pulmonary nodule on needs repeat in 1 year.. --Does seem to have some hemosiderin sta ining over her lower extremities likely due to her years of smoking. Advised on compression socks to be used during the day. .. mammogram:? Mammogram done in April 2023- BI-RADS 2 .. Tachycardia:? Heart rate today in office normal, does use beta-yuliana for her heart rate with good effect. Also blood pressure acceptable today in office.? Does not monitor blood pressure at home .. Hyperlipidemia:? Continues on low-dose rosuvastatin without side effect, most recent lipid panel acceptable with LDL below 130 .. Hypothyroidism:? 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 Obesity (BMI 30-39.9) GERD (gastroesophageal reflux disease) Hypothyroidism HTN (hypertension) HLD (hyperlipidemia) Surgical History History of section History of cholecystectomy History of carpal tunnel release Family History Father Prostate cancer Mother Myocardial infarction Brother CAD (coronary artery disease) Social History Housing: Apartment Alcohol intake: never Patient Tobacco Use Status: Current everyday Tobacco user Tobacco use type: Cigarette Cigarette Packs Per Day: 1 Years Smoked: (onset 18yo, 1ppd x 33yrs, 30pyh) e-Cigarette/Vaping Use: Never Used Second Hand Smoke Exposure: Yes service: No Current occupational status: employed Current occupation: [employer] hand Cognitive needs: No Hearing needs: No Vision needs: No Questionnaire PHQ-9 Over the last 2 weeks, how often have you been bothered by any of the following problems? 1. Little interest or pleasure in doing things: not at all 2. Feeling down, depressed, or hopeless: not at all 3. Trouble falling or staying asleep, or sleeping too much: not at all 4. Feeling tired or having little energy: not at all 5. Poor appetite or overeating: not at all 6. Feeling bad about yourself - or that you are a failure or have let yourself or your family down: not at all 7. Trouble concentrating on things, such as reading the newspaper or watching television: not at all 8. Moving or speaking so slowly that other people could have noticed. Or the opposite - being so fidgety or restless that you have been moving around a lot more than usual: not at all 9. Thoughts that you would be better off or of hurting yourself in some way: not at all Total score: 0 Depression Screening Interpretation: Negative Depression Screening Done: Yes 96406 - PHQ-9 Billing: Yes Source: Developed by Drs. Efe Lawrence, Alissa Pérez, Kiran Marcus and colleagues, with an educational miguel from [employer]. Thrive Questionnaire Date Thrive assessed: 02/06/24 I am a: Patient What is your living situation today?: I have a steady place to live Within the past 12 months, did the food you bought not last and you didn't have the money to get more?: Never true Within the past 12 months, did you worry whether your food would run out before you got money to buy more?: Never true Do you have trouble paying for medicines?: No Do you have trouble getting transportation to medical appointments?: No Do you have trouble paying your heating and electricity bill?: No Do you have trouble taking care of your child, family member or friend?: No Do you have trouble with day-to-day activities such as bathing, preparing meals, shopping, managing finances, etc.?: No Are you currently unemployed and looking for a job?: No Are you interested in more education?: No Please select the resources that you would like help with: None Currently or been in a relationship where the following occur: no concerns reported THRIVE Score: 0 AUDIT C Alcohol Use Questionnaire (AUDIT-C) 1. How often do you have a drink containing alcohol?: Never 3. How often do you have six or more drinks on one occasion?: Never Total Score: 0 Score Reviewed/Action Taken: Yes EMERSON-7 AMB Questionnaire EMERSON-7 Date EMERSON - 7 assessed: 02/06/24 Feeling nervous, anxious, or on edge: 0 = Not at all Not being able to stop or control worryin = Not at all Worrying too much about different things: 0 = Not at all Trouble relaxin = Not at all Being so restless that it is hard to sit still: 0 = Not at all Becoming easily annoyed or irritable: 0 = Not at all Feeling afraid as if something awful might happen: 0 = Not at all Total EMERSON-7 score (0-4 normal; 5-9 mild; 10-14 moderate; 15-21 severe): 0 Source: Developed by Drs. Efe Lawrence, Alissa Pérez, Kiran Marcus and colleagues, with an educational miguel from [employer]. EMERSON-7 Assessment Billing EMERSON-7 Assessment Tool: EMERSON-7 Assessment 83335 Review of Systems Const Denies body aches, Denies chills, Denies excessive sweating, Denies fatigue, Denies fever(s) and Denies headache(s) Eyes Denies blurry vision ENT Denies dysphagia, Denies vertigo, Denies dizziness, Denies headache(s), Denies hearing loss and Denies tinnitus Card Denies chest pain, Denies chest pain with activity, Denies syncope, Denies irregular heart rhythm and Denies dyspnea Resp Denies chest congestion, Denies cough, Denies hemoptysis, Denies dyspnea and Denies wheezing GI Denies abdominal pain, Denies melena, Denies hematochezia, Denies coffee ground emesis, Denies dysphagia, Denies diarrhea, Denies nausea and Denies vomiting Denies urinary frequency, Denies dysuria, Denies urinary hesitancy and Denies urinary urgency Musc Denies arthralgias, Denies limited range of motion, Denies muscle cramps and Denies muscle weakness Skin/Breast Denies rash and Denies skin ulcer Neuro Denies Abnormal speech present, Denies confusion, Denies vertigo, Denies dizziness, Denies syncope, Denies headache(s), Denies memory loss and Denies seizure-like activity Psych Denies anxiety, Denies confusion, Denies depression, Denies memory loss, Denies panic attacks and Denies paranoia Endo Denies excessive sweating, Denies fatigue, Denies flushing, Denies polydipsia and Denies polyuria Aller/Immun Denies wheezing Physical exam (Primary Care) Vital Signs: Last Vital Signs Pulse 74 02/06/24 10:34 BP 108/76 02/06/24 10:34 Pulse Ox 96 02/06/24 10:34 Oxygen Delivery Method Room Air 02/06/24 10:34 BMI result Body Mass Index 30.9 Tobacco/Smoking Status: Tobacco use Status Tobacco use date assessed 02/06/24 02/06/24 10:46 Patient Tobacco Use Status Current everyday Tobacco 02/06/24 10:35 Tobacco use type Cigarette 02/06/24 10:35 e-Cigarette/Vaping Use Never Used 02/06/24 10:35 Are you ready to quit: No Tobacco cessation counseling provided: Yes Items discussed: Nicotine replacement Relapse Prevention: discussed the importance of a supportive environment, discussed negative mood or depression after quitting, weight gain after smoking is common and discussed dietary, exercise and/or lifestyle changes Number of minutes spent counselin PHQ-9: PHQ-9 Score PHQ-9: Total score 0 02/06/24 14:20 Depression Screening Interpretation: Negative Thrive Assessment: Date of Thrive Assessment Date Thrive assessed 02/06/24 02/06/24 10:46 Currently or been in a relationship where the following occur: no concerns reported Const General: cooperative, comfortable, no acute distress, alert and awake; No confusion Orientation/consciousness: oriented to person, oriented to place, patient oriented x3 and No confusion HENMT Head: Yes normocephalic Ears: external ears normal and TM's normal bilaterally Face and sinus: No sinus tenderness Mouth: Normal oral and palatal mucosa present and tongue normal Teeth and gingiva: dentition normal and gingiva normal Throat: Yes posterior oropharynx normal, Yes tonsils normal and Yes uvula midline Eyes Conjunctivae: conjunctivae normal Sclerae: sclerae normal Pupils: Equal, round and reactive pupils present EOM: EOMs intact bilaterally Direct Ophthalmoscopy: No no photophobia Neck Neck: Yes no lymphadenopathy, No tender and Yes no JVD Thyroid: Thyroid normal Carotids: no bruits Chest Chest palpation & inspection: no tenderness Resp Effort & Inspection: normal respiratory effort, no audible wheezes, not labored and no stridor Auscultation: no crackles, no rales, no rhonchi and no wheezes Cardio Jugular venous distension: no JVD Rate: regular rate, not bradycardic and not tachycardic Rhythm: regular rhythm Bruits: no carotid bruits Peripheral pulses: Peripheral pulses 2+ throughout GI Inspection: Yes normal to inspection, No abdominal wall ecchymosis and No visible herniation Palpation (GI): Soft to palpation, nontender, no guarding, not rigid and No hepatosplenomegaly present Auscultation: normoactive bowel sounds Abdomen image: 2 1. SOME TENDERNESS TO DEEP PALPATION IN THE LOCALIZED AREA OUTLINED . General: Yes no CVA tenderness Back/Spine/Pelvis Back: no CVA tenderness and No back tenderness Cervical Spine: cervical ROM normal Thoracic/Lumbar Spine: thoracic and lumbar spine normal to inspection, straight leg raise negative bilaterally, No thoraco-lumbar ROM limited and No lumbar spinal tenderness Skin Lesions: no lesions Rashes: no rashes Wounds: no wounds Neuro General: oriented to person, oriented to place, patient oriented x3, CN's II-XI intact bilaterally and No confusion Cranial nerves: Yes Equal, round and reactive pupils present and Yes Normal accommodation reflex present Cognition (Neuro): normal cognition Speech: No Abnormal speech present Gait exam (Neuro): Normal gait present Motor exam (neuro): 5/5 motor strength present throughout Extrem Other: RIGHT SHOULDER: SLIGHTLY LIMITED RANGE OF MOTION AND PAIN AND STIFFNESS COMPARED TO LEFT SHOULDER. Right upper extremity: full ROM; no cyanosis Left upper extremity: full ROM; no cyanosis Right lower extremity: no edema Left lower extremity: no edema Psych Appearance: grossly normal Mental Status: mental status grossly normal Affect: normal affect Attitude: cooperative Thought process: Normal thought process present Assessment and Plan Assessment & Plan (1) Annual physical exam: Code(s): Z00.00 - Encounter for general adult medical examination without abnormal findings (2) HTN (hypertension): Code(s): I10 - Essential (primary) hypertension Qualifiers: Hypertension type: unspecified Qualified Code(s): I10 - Essential (primary) hypertension Plan: Has been well controlled with beta-yuliana, Goal blood pressure to be below 140/90 (3) HLD (hyperlipidemia): Code(s): E78.5 - Hyperlipidemia, unspecified Qualifiers: Hyperlipidemia type: pure hypercholesterolemia Qualified Code(s): E 78.00 - Pure hypercholesterolemia, unspecified Plan: Patient continues on statin therapy without side effect. Unfortunately continues to smoke and does understand she needs to quit. Goal total cholesterol be below 200 and LDL below 130 (4) Hypothyroidism: Code(s): E03.9 - Hypothyroidism, unspecified Qualifiers: Hypothyroidism type: acquired Qualified Code(s): E03.9 - Hypothyroidism, unspecified Plan: Patient continues on daily use of levothyroxine 100 mcg. Will continue to follow TSH to assure normal. (5) RUQ abdominal pain: Code(s): R10.11 - Right upper quadrant pain Plan: Patient's ultrasound with evidence of fatty liver disease. Otherwise unremarkable ultrasound. Liver enzymes normal. Has been trying to treat constipation though has not been helpful. Pain continues to be in localized area as outlined in annual physical. Pain worse when long periods of sitting or with deep palpation in the localized area. Will send for CT of the abdomen evaluate for hernia. (6) Nicotine dependence, cigarettes, uncomplicated: Comment: (onset 18yo, 1ppd x 33yr, 30pyh) Code(s): F17.210 - Nicotine dependence, cigarettes, uncomplicated Plan: Patient does understand she needs to quit smoking. Offered her nicotine replacement though she declines. (7) Tendinopathy of left shoulder: Code(s): M67.912 - Unspecified disorder of synovium and tendon, left shoulder Plan: Patient having left shoulder pain and decreased range of motion with certain movements. Will send for x-ray to evaluate for arthritis or calcified tendinitis. Likely will benefit from formal physical therapy though would like to hold off on this for now. Will supply patient with anti-inflammatory to use as needed. (8) Thoracic aortic aneurysm: Code(s): I71.20 - Thoracic aortic aneurysm, without rupture, unspecified Qualifiers: Presence of rupture: without rupture Thoracic aorta location: ascending aorta Qualified Code(s): I71.21 - Aneurysm of the ascending aorta, without rupture Plan: Was found to have a thoracic aneurysm on most recent CT chest. Aneurysm measuring at 4.1 cm. Has followed up with Cardiovascular surgeon whom recommend surveillance imaging. Advised on no heavy lifting, smoking cessation and blood pressure cholesterol control. (9) PVD (peripheral vascular disease): Code(s): I73.9 - Peripheral vascular disease, unspecified Plan: Patient does seem to have some hemosiderin staining likely secondary to peripheral vascular disease. No notable swelling in her legs. (10) EMERSON (generalized anxiety disorder): Code(s): F41.1 - Generalized anxiety disorder Plan: Patient does have anxiet. panic attacks from time to time. Does use alprazolam on a very limited p.r.n. basis. We did discuss the habit-forming nature of this medication and patient does agree to use it only PRN basis Orders: Orders 2 Comprehensive [place]. Panel Fast 02/06/24 I10 - Essential (primary) hypertension TSH reflex Free T4 02/06/24 E03.9 - Hypothyroidism, unspecified CT abdomen wo IV con 02/06/24 R10.11 - Right upper quadrant pain XR shoulder LT min 2V 02/06/24 M67.912 - Unspecified disorder of synovium and tendon, left shoulder Microalbumin, Random (w Creat) 02/06/24 I10 - Essential (primary) hypertension Lipid Panel 02/06/24 E78.00 - Pure hypercholesterolemia, unspecified Medications: New 2 compr.stocking,knee,long,small ([facility]D. K[facility] [place]) As directed 24 ea 0RF I73.9 - Peripheral vascular disease, unspecified diclofenac sodium 75 mg PO BID PRN 30 tabs 1RF pain 15 days M67.912 - Unspecified disorder of synovium and tendon, left shoulder triamcinolone acetonide 0.1% 1 appl topical DAILY 80 grams 0RF 30 days I73.9 - Peripheral vascular disease, unspecified Refilled 2 alprazolam 0.25 mg PO BEDTIME PRN 7 tabs 0RF anxiety 7 days F41.1 - Generalized anxiety disorder Patient Instructions: Goal: Blood pressure remain below 140/90, smoking cessation Barriers: Adherence to physical activity and healthy eating habits. Availability of cigarettes Coding Level of Care Code Est Pt Prev Care 40-64y(99895) Diagnoses Annual physical exam Z00.00 Hypertension, unspecified type I10 Hypertension type: unspecified Pure hypercholesterolemia E78.00 Hyperlipidemia type: pure hypercholesterolemia Acquired hypothyroidism E03.9 Hypothyroidism type: acquired RUQ abdominal pain R10.11 Nicotine dependence, cigarettes, uncomplicated F17.210 Tendinopathy of left shoulder M67.912 Aneurysm of ascending aorta without rupture I71.21 Presence of rupture: without rupture Thoracic aorta location: ascending aorta PVD (peripheral vascular disease) I73.9 EMERSON (generalized anxiety disorder) F41.1 Additional Codes EMERSON-7 Assessment Billing - EMERSON-7 Assessment Tool: EMERSON-7 Assessment [id number] ([id number])
== END 2024-02-06 11:28 | disposition home or self-care (01) ==
PROVIDERS: PCP Physician Assistant; Visit Provider Physician Assistant
DX: Z00.00 Encounter for general adult medical examination without abnormal findings (principal); I71.21 Aneurysm of the ascending aorta, without rupture; I73.9 Peripheral vascular disease, unspecified; I10 Essential (primary) hypertension; E78.00 Pure hypercholesterolemia, unspecified; E03.9 Hypothyroidism, unspecified; R10.11 Right upper quadrant pain; F17.210 Nicotine dependence, cigarettes, uncomplicated; M67.912 Unspecified disorder of synovium and tendon, left shoulder; F41.1 Generalized anxiety disorder
CPT/HCPCS: 99396

== ENCOUNTER 2024-04-17 06:55 | Outpatient (REF) | payer OTHER, SELFPAY ==
--- NOTE | ~2024-04-17 | CT_ITS ---
EXAMINATION: CT ABDOMEN WITH CONTRAST CLINICAL INFORMATION: Right upper quadrant abdominal pain COMPARISON: Ultrasound examination of the abdomen on 03/21/2023 TECHNIQUE: Contiguous axial thin section helical images of the abdomen were performed following the administration of oral contrast and 85 mL of Omnipaque 350 intravenous contrast. The data set was reformatted in the coronal and sagittal planes and reviewed on an independent workstation. This CT examination was performed using dose optimization techniques as appropriate, variously including the following: *Automated exposure control *Adjustment of mA and/or kV according to patient size (this includes techniques or standardized protocols for targeted exams where dose is matched to indication/reason for exam; i.e. extremities or head) *Use of iterative reconstruction technique DLP: 255 mGy-cm FINDINGS: LUNG BASES: Bilateral lung bases are clear. LIVER: No focal lesion is seen in the liver. GALLBLADDER AND BILIARY TREE: Gallbladder is surgically absent with clips in the gallbladder fossa. Common bile duct is not dilated. SPLEEN: The spleen is normal in size without focal lesion. PANCREAS: The pancreas appears unremarkable. ADRENAL GLANDS: Adrenal glands are normal in size without focal lesion bilaterally. KIDNEYS: Bilateral kidneys are normal in size with a simple cyst in anterior lateral mid left renal cortex measuring 2.7 cm in diameter, mean attenuation of 4 Hounsfield units, for which no follow-up imaging is recommended. BOWELS: There is normal filling of the stomach and small bowel loops with oral contrast down to the distal pelvic ileum. Normal appendix is seen protruding inferior to the cecum. Diverticula are seen in the descending-sigmoid colon junction without inflammatory changes. RETROPERITONEUM: No abnormally enlarged retroperitoneal lymph nodes, mass or hematoma could be seen. BLOOD VESSELS: Abdominal aorta is normal in size with scattered atherosclerotic calcifications and smoothly patent. ABDOMINAL WALL: Small umbilical hernia containing mesenteric fat is seen. PERITONEUM: There was no ascites. There were no abdominal peritoneal inflammatory changes seen. No free peritoneal air was seen. No abnormally enlarged mesenteric lymph nodes are found. BONES: Mild posterior L5-S1 disc protrusion is present. No fracture or dislocation. No focal bone lesion diagnostic of metastatic disease could be seen in the lumbar region. CT/CT abdomen w IV con IMPRESSION: 1. Status post cholecystectomy. 2. Diverticulosis of the descending-sigmoid colon junction without inflammatory changes. 3. Small umbilical hernia containing mesenteric fat. 4. Unchanged Left renal cortical simple cyst, for which additional follow-up imaging is recommended. 5. No evidence of intestinal or colonic obstruction. Fleischner guidelines were followed. Electronically signed by: Reji Gross MD 05/08/2024 09:28 AM EDT
[2024-04-17 07:53] LABS: Alanine Aminotransferase 13 U/L (0-31); Albumin Level 4.6 g/dL (3.5-5.0); Alkaline Phosphatase 64 U/L (39-117); Anion Gap 12 (12-20); Aspartate Amino Transferase 17 U/L (5-31); Bilirubin Total 0.5 mg/dL (0.0-1.0); Blood Urea Nitrogen 9 mg/dL (9-16); Calcium 10.1 mg/dL (8.4-10.2); Carbon Dioxide 30 mmol/L (22-29); Chloride 103 mmol/L (96-108); Estimated Glomerular Filt Rate > 60; Glucose Fasting 119 mg/dL (60-99); Potassium 4.3 mmol/L (3.3-5.1); Sodium 141 mmol/L (135-145); Total Protein 7.3 g/dL (6.5-8.0)
[2024-04-17] MEDS: Barium Sulfate Oral (Mocha) 450 ML ORAL.SUSP PO (09:24)
[2024-04-17] MEDS: iohexoL 350 MG/ML 100 ML INFUS..BTL 85 ML IV (09:24)
== END 2024-04-17 06:56 | disposition home or self-care (01) ==
LOC: HO.CT 06:55
PROVIDERS: PCP Physician Assistant; Visit Provider Physician Assistant
DX: R10.11 Right upper quadrant pain (principal); R10.12 Left upper quadrant pain; I10 Essential (primary) hypertension
CPT/HCPCS: 36415; 74160; 80053; Q9967

== ENCOUNTER 2024-05-06 08:44 | Outpatient (REF) | payer OTHER, SELFPAY ==
--- NOTE | ~2024-05-06 | XR_ITS ---
EXAMINATION: XR SHOULDER, LEFT CLINICAL INFORMATION: Pain COMPARISON: None available. TECHNIQUE: AP external rotation, Grashey, scapular Y, and axillary views of the left shoulder. FINDINGS: Subtle calcification adjacent to the humeral head may reflect hydroxyapatite deposition disease. No acute fracture or dislocation. XR/XR shoulder LT min 2V IMPRESSION: Subtle calcification adjacent to the humeral head may reflect hydroxyapatite deposition disease. No acute fracture or dislocation. Electronically signed by: Marry Redman MD 05/13/2024 08:12 PM EDT
[2024-05-06 10:21] LABS: Estimated Average Glucose 114 mg/dL; Hemoglobin A1c % 5.6 % (<6.0)
== END 2024-05-06 08:45 | disposition home or self-care (01) ==
LOC: HO.LAB 08:44
PROVIDERS: PCP Physician Assistant; Visit Provider Physician Assistant
DX: M67.912 Unspecified disorder of synovium and tendon, left shoulder (principal); R73.09 Other abnormal glucose
CPT/HCPCS: 36415; 73030; 83036

== ENCOUNTER → 2024-05-13 09:30 | Outpatient (BNV) | payer OTHER, SELFPAY | PROVIDERS: PCP Physician Assistant; Visit Provider Internal Medicine | DX: Z12.31 Encounter for screening mammogram for malignant neoplasm of breast (principal) | CPT/HCPCS: 77063; 77067 ==

== ENCOUNTER 2024-05-13 09:33 | Outpatient (REF) | payer OTHER, SELFPAY ==
--- NOTE | ~2024-05-13 | MM_ITS ---
EXAMINATION: MM SCREENING DIGITAL BREAST TOMOSYNTHESIS, BILATERAL CLINICAL INFORMATION: Screening. Asymptomatic. COMPARISON: Mammography: Comparison is made with available priors TECHNIQUE: Digital breast tomosynthesis is performed in both the craniocaudal and mediolateral oblique views along with computer-aided detection (CAD). Synthesized 2D images are generated from the tomosynthesis. FINDINGS: The breasts are heterogeneously dense, which may obscure small masses (ACR BI-RADS breast composition Category c). Calcifications in the retroareolar region of the right breast stable dating back to 2019. There are no significant masses, abnormal calcifications, or other abnormalities. MM/MM tomosynthesis screening BI IMPRESSION: No mammographic evidence of malignancy. ASSESSMENT: BI-RADS BI-RADS 2 - Benign Findings RECOMMENDATION: Routine annual mammography screening. 1 year F/U This examination should not preclude the clinical evaluation of a suspicious palpable abnormality. This patient's information was entered into a reminder system with a target due date for their next mammogram. Electronically signed by: Gisell Franco DO 06/06/2024 01:10 PM EDT
== END 2024-05-13 09:34 | disposition home or self-care (01) ==
LOC: HO.MAMMO 09:33
PROVIDERS: PCP Physician Assistant; Visit Provider Physician Assistant
DX: Z12.31 Encounter for screening mammogram for malignant neoplasm of breast (principal)
CPT/HCPCS: 77063; 77067

== ENCOUNTER 2024-06-09 11:01 | Outpatient (AMB) | payer OTHER, SELFPAY ==
--- NOTE | 2024-06-09 11:09 | A.OFFPC_ITS ---
Vital Signs 06/09/24 11:10 Height 5 ft Weight 157 lb 2 oz BMI 30.7 BP 122/70 Blood Pressure Location Lt brachial Position Sitting Pulse 82 Pulse Source Pulse Oximeter Pulse Oximetry (%) 98 Oxygen Delivery Method Room Air Intake Visit Reasons: f/u HTN/right-sided abdominal pain. Organizational Research Consultant Required: No Accompanied by: Self / Same As Patient Allergies Rovamycin Allergy (Severe, Uncoded 06/09/24 11:22) Unknown Medication List - Last Reconciled 06/09/24 by Alon Reaves PA-C alprazolam 0.25 mg PO BEDTIME PRN 7 days bisoprolol fumarate 5 mg PO DAILY 90 days compr.stocking,knee,long,large As directed compr.stocking,knee,long,small (T.E.D. Knee Ahgczt-M-Tpfm misc) As directed-need for 10-15 mm Hg compression diclofenac sodium 75 mg PO BID PRN 15 days ibuprofen 400 mg PO TID PRN Lactobacillus rhamnosus GG (Culturelle) 1 cap PO DAILY 90 days levothyroxine 100 mcg PO DAILY 90 days rosuvastatin 5 mg PO DAILY 90 days sennosides (senna) 17.2 mg (2 x 8.6 mg) PO BEDTIME PRN 30 days simethicone (Gas Relief (simethicone)) 80 mg PO BID-QID PRN 15 days triamcinolone acetonide 0.1% 1 appl topical DAILY 30 days Tobacco use date assessed: 02/06/24 Dental Screening Dental Screen Date: 02/06/24 HPI f/u HTN/right-sided abdominal pain. HPI Details Patient is a 53-year-old female here today for follow-up visit. ? Patient has a past medical history significant for GERD, hypothyroidism, tobacco use disorder, obesity, Thoracic aneurysm, HTN, hyperlipidemia, cervical spine disc disease.' Concerns--> report having an intermittent pain in her right mid abd, she attributes this to her constipation. She has previously had a cholecystectomy. Has gotten ultrasound of her abdomen that did show fatty liver disease. She has done physical therapy though has not been effective for her. She reports the pain has not gotten worse though has not gone away in nearly 9 months . She denies any issues with diarrhea or changes in stool patterns. She has not gotten any recent colonoscopy. Otherwise no evidence on ultrasound that can explain her right lower quadrant abdominal pain. She did undergo CT of abdomen that which did not show any cause of her abdominal pain. She has followed up with Gastroenterology specialty whom recommended probiotics which has helped to reduce her right lower quadrant abdominal pain. . Also reports having Left shoulder pain, having decreased ROM . She can not recall any acute traumatic injury to her left shoulder. PLAN: She will call for physical therapy appointment. Thoracic aneurysm: does to have a 4.1 cm, she is now followed by cardio vascular surgeon at [facility] and will be undergoing surveillance imaging .. Tobacco use disorder:? She does understand she needs to quit smoking though has found very difficult.? Has tried nicotine patches and gum in the past without much success.? Has seen lung cancer screening program will send for low-dose CT of chest showing fairly benign results, does have pulmonary nodule on needs repeat in 1 year.. --Does seem to have some hemosiderin sta ining over her lower extremities likely due to her years of smoking. Advised on compression socks to be used during the day. .. .. Tachycardia:? Heart rate today in office normal, does use beta-yuliana for her heart rate with good effect. Also blood pressure acceptable today in office.? Does not monitor blood pressure at home .. Hyperlipidemia:? Continues on low-dose rosuvastatin without side effect, most recent lipid panel acceptable with LDL below 130. She believes she is having side effect from statin therapy such as fatigue and muscle aches. She would like to try being off of statin therapy for some time to see if she can keep her cholesterol down with lifestyle and dietary modifications. .. Hypothyroidism:? 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 Obesity (BMI 30-39.9) GERD (gastroesophageal reflux disease) Hypothyroidism HTN (hypertension) HLD (hyperlipidemia) Surgical History History of section History of cholecystectomy History of carpal tunnel release Family History Father Prostate cancer Mother Myocardial infarction Brother CAD (coronary artery disease) Social History Housing: Apartment Alcohol intake: never Patient Tobacco Use Status: Current everyday Tobacco user Tobacco use type: Cigarette Cigarette Packs Per Day: 1 Years Smoked: (onset 18yo, 1ppd x 33yrs, 30pyh) e-Cigarette/Vaping Use: Never Used Second Hand Smoke Exposure: Yes service: No Current occupational status: employed Current occupation: [employer] Cognitive needs: No Hearing needs: No Vision needs: No Questionnaire PHQ-9 Over the last 2 weeks, how often have you been bothered by any of the following problems? 1. Little interest or pleasure in doing things: not at all 2. Feeling down, depressed, or hopeless: not at all 3. Trouble falling or staying asleep, or sleeping too much: not at all 4. Feeling tired or having little energy: not at all 5. Poor appetite or overeating: not at all 6. Feeling bad about yourself - or that you are a failure or have let yourself or your family down: not at all 7. Trouble concentrating on things, such as reading the newspaper or watching television: not at all 8. Moving or speaking so slowly that other people could have noticed. Or the opposite - being so fidgety or restless that you have been moving around a lot more than usual: not at all 9. Thoughts that you would be better off or of hurting yourself in some way: not at all Total score: 0 Depression Screening Interpretation: Negative Depression Screening Done: Yes 49887 - PHQ-9 Billing: Yes Source: Developed by Drs. Efe Lawrence, Alissa Pérez, Kiran Marcus and colleagues, with an educational miguel from [employer]. Thrive Questionnaire Date Thrive assessed: 06/09/24 I am a: Patient What is your living situation today?: I have a steady place to live Within the past 12 months, did the food you bought not last and you didn't have the money to get more?: Never true Within the past 12 months, did you worry whether your food would run out before you got money to buy more?: Never true Do you have trouble paying for medicines?: No Do you have trouble getting transportation to medical appointments?: No Do you have trouble paying your heating and electricity bill?: No Do you have trouble taking care of your child, family member or friend?: No Do you have trouble with day-to-day activities such as bathing, preparing meals, shopping, managing finances, etc.?: No Are you currently unemployed and looking for a job?: No Are you interested in more education?: No Please select the resources that you would like help with: None Currently or been in a relationship where the following occur: No concerns reported THRIVE Score: 0 AUDIT C Alcohol Use Questionnaire (AUDIT-C) 1. How often do you have a drink containing alcohol?: Never 3. How often do you have six or more drinks on one occasion?: Never Total Score: 0 Score Reviewed/Action Taken: Yes EMERSON-7 AMB Questionnaire EMERSON-7 Date EMERSON - 7 assessed: 06/09/24 Feeling nervous, anxious, or on edge: 0 = Not at all Not being able to stop or control worryin = Not at all Worrying too much about different things: 0 = Not at all Trouble relaxin = Not at all Being so restless that it is hard to sit still: 0 = Not at all Becoming easily annoyed or irritable: 0 = Not at all Feeling afraid as if something awful might happen: 0 = Not at all Total EMERSON-7 score (0-4 normal; 5-9 mild; 10-14 moderate; 15-21 severe): 0 Source: Developed by Drs. Efe Lawrence, Alissa Pérez, Kiran Marcus and colleagues, with an educational miguel from [employer]. EMERSON-7 Assessment Billing EMERSON-7 Assessment Tool: EMERSON-7 Assessment 15237 Review of Systems Const Denies headache(s) Eyes Denies loss of vision ENT Denies vertigo, Denies dizziness, Denies headache(s) and Denies sore throat Card Denies chest pain, Denies leg edema and Denies lightheadedness Resp Denies cough, Denies hemoptysis and Denies wheezing GI Denies abdominal pain, Denies melena, Denies constipation, Denies diarrhea and Denies vomiting Denies urinary frequency, Denies dysuria and Denies urinary urgency Musc Denies arthralgias, Denies joint swelling, Denies numbness and Denies tingling Neuro Denies Abnormal speech present, Denies behavioral changes, Denies vertigo, Denies dizziness, Denies headache(s), Denies loss of vision, Denies memory loss, Denies numbness and Denies tingling Psych Denies anxiety, Denies behavioral changes, Denies depression, Denies memory loss and Denies panic attacks Neal/Lymph Denies easy bleeding and Denies easy bruising Aller/Immun Denies wheezing Physical exam (Primary Care) Vital Signs: Last Vital Signs Pulse 82 06/09/24 11:10 BP 122/70 06/09/24 11:10 Pulse Ox 98 06/09/24 11:10 Oxygen Delivery Method Room Air 06/09/24 11:10 BMI result Body Mass Index 30.7 Tobacco/Smoking Status: Tobacco use Status Tobacco use date assessed 02/06/24 06/09/24 11:12 Patient Tobacco Use Status Current everyday Tobacco 06/09/24 11:12 Tobacco use type Cigarette 06/09/24 11:12 e-Cigarette/Vaping Use Never Used 06/09/24 11:12 Are you ready to quit: No Tobacco cessation counseling provided: Yes Items discussed: Nicotine replacement Relapse Prevention: discussed the importance of a supportive environment, discussed negative mood or depression after quitting, weight gain after smoking is common and discussed dietary, exercise and/or lifestyle changes Number of minutes spent counselin CPT code: 38345 - 4-10 Minutes PHQ-9: PHQ-9 Score PHQ-9: Total score 0 06/09/24 11:24 Depression Screening Interpretation: Negative Thrive Assessment: Date of Thrive Assessment Date Thrive assessed 06/09/24 06/09/24 11:14 Currently or been in a relationship where the following occur: No concerns reported Const General: healthy appearing, no acute distress, alert and awake Nutritional Appearance: well nourished Orientation/consciousness: oriented to person, oriented to place and oriented to time HENMT Ears: TM's normal bilaterally General nose exam: Normal nasal mucous membranes and turbinates present Eyes Conjunctivae: conjunctivae normal Sclerae: sclerae normal Pupils: Equal, round and reactive pupils present Neck Neck: Yes no lymphadenopathy and Yes no JVD Thyroid: Thyroid normal Carotids: no bruits Resp Effort & Inspection: normal respiratory effort and not tachypneic Auscultation: no crackles, no rales, no rhonchi and no wheezes Cardio Rate: regular rate Rhythm: regular rhythm Heart sounds: no murmurs and normal S1 and S2 GI Palpation (GI): Soft to palpation, nontender, no hepatomegaly and no splenomegaly Auscultation: normal bowel sounds Skin General skin exam: no rashes or lesions noted and dry skin Neuro General: oriented to person, oriented to place and oriented to time Cranial nerves: Yes Equal, round and reactive pupils present Speech: No Abnormal speech present Gait exam (Neuro): Normal gait present Motor exam (neuro): no tremor noted Extrem Right upper extremity: full ROM Left upper extremity: full ROM Right lower extremity: full ROM; no edema Left lower extremity: full ROM; no edema Psych Mental Status: mental status grossly normal Speech and movement: Normal speech and movement present Affect: normal affect Attitude: cooperative Thought process: Normal thought process present Assessment and Plan Assessment & Plan (1) HLD (hyperlipidemia): Code(s): E78.5 - Hyperlipidemia, unspecified Qualifiers: Hyperlipidemia type: pure hypercholesterolemia Qualified Code(s): E78.00 - Pure hypercholesterolemia, unspecified Plan: Patient would like to hold off on statin therapy and see if she can keep her cholesterol and controlled with lifestyle and dietary modifications. She believes she is having side effects such as muscle aches from the statin.. Unfortunately continues to smoke and does understand she needs to quit. Goal total cholesterol be below 200 and LDL below 130 (2) Cervical cancer screening: Code(s): Z12.4 - Encounter for screening for malignant neoplasm of cervix Plan: Patient is in need of Pap screening, refer to director radio (3) HTN (hypertension): Code(s): I10 - Essential (primary) hypertension Qualifiers: Hypertension type: unspecified Qualified Code(s): I10 - Essential (primary) hypertension Plan: Has been well controlled with beta-yuliana, Goal blood pressure to be below 140/90 (4) Hypothyroidism: Code(s): E03.9 - Hypothyroidism, unspecified Qualifiers: Hypothyroidism type: acquired Qualified Code(s): E03.9 - Hypothyroidism, unspecified Plan: Patient continues on daily use of levothyroxine 100 mcg. Will continue to follow TSH to assure normal. (5) RUQ abdominal pain: Code(s): R10.11 - Right upper quadrant pain Plan: She did get CT abdomen that did show umbilical fat containing hernia and diverticulosis otherwise normal. Has followed up with Gastroenterology was told to start a probiotic and possibly get colonoscopy in near future. (6) Nicotine dependence, cigarettes, uncomplicated: Comment: (onset 18yo, 1ppd x 33yr, 30pyh) Code(s): F17.210 - Nicotine dependence, cigarettes, uncomplicated Plan: Patient does understand she needs to quit smoking. Offered her nicotine replacement though she declines. (7) Thoracic aortic aneurysm: Code(s): I71.20 - Thoracic aortic aneurysm, without rupture, unspecified Qualifiers: Presence of rupture: without rupture Thoracic aorta location: ascending aorta Qualified Code(s): I71.21 - Aneurysm of the ascending aorta, without rupture Plan: Was found to have a thoracic aneurysm on most recent CT chest. Aneurysm me asuring at 4.1 cm. Has followed up with Cardiovascular surgeon whom recommend surveillance imaging. Advised on no heavy lifting, smoking cessation and blood pressure cholesterol control. (8) PVD (peripheral vascular disease): Code(s): I73.9 - Peripheral vascular disease, unspecified Plan: Patient does seem to have some hemosiderin staining likely secondary to peripheral vascular disease. Will get a right lower extremity ultrasound evaluate for peripheral vascular disease due to her years of smoking. She has acquired a pair compression socks which have been helpful reducing some of her right lower extremity pain Orders: Orders Comprehensive [place]. 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 Z12.4 - Encounter for screening for malignant neoplasm of cervix Medications: On Hold rosuvastatin Hold Comment: Doctor's Order 5 mg PO DAILY 90 days 90 tabs 1RF E78.5 - Hyperlipidemia, unspecified Patient Instructions: Goal: Blood pressure to remain below 140/90, LDL to remain below 130 Barrier: Continued smoking, adherence to physical activity and healthy eating habits Coding Level of Care Code Est Pt Level 4 (83364) Diagnoses Pure hypercholesterolemia E78.00 Hyperlipidemia type: pure hypercholesterolemia Cervical cancer screening Z12.4 Hypertension, unspecified type I10 Hypertension type: unspecified Acquired hypothyroidism E03.9 Hypothyroidism type: acquired RUQ abdominal pain R10.11 Nicotine dependence, cigarettes, uncomplicated F17.210 Aneurysm of ascending aorta without rupture I71.21 Presence of rupture: without rupture Thoracic aorta location: ascending aorta PVD (peripheral vascular disease) I73.9 Additional Codes EMERSON-7 Assessment Billing - EMERSON-7 Assessment Tool: EMERSON-7 Assessment 16695 ([id number]) Vital Signs *Quality* - CPT code: 35136 - 4-10 Minutes ([id number])
[2024-06-09 11:10] VITALS: BP 122/70; PULSE 82; O2SAT 98; BMI 30.7
== END 2024-06-09 11:49 | disposition home or self-care (01) ==
PROVIDERS: PCP Physician Assistant; Visit Provider Physician Assistant
DX: E78.00 Pure hypercholesterolemia, unspecified (principal); Z12.4 Encounter for screening for malignant neoplasm of cervix; I10 Essential (primary) hypertension; E03.9 Hypothyroidism, unspecified; R10.11 Right upper quadrant pain; F17.210 Nicotine dependence, cigarettes, uncomplicated; I71.21 Aneurysm of the ascending aorta, without rupture; I73.9 Peripheral vascular disease, unspecified

== ENCOUNTER → 2024-06-09 11:01 | Outpatient (BNVA) | payer OTHER, SELFPAY | PROVIDERS: PCP Physician Assistant; Visit Provider Physician Assistant | DX: E78.00 Pure hypercholesterolemia, unspecified (principal); I10 Essential (primary) hypertension; E03.9 Hypothyroidism, unspecified; R10.11 Right upper quadrant pain; I71.21 Aneurysm of the ascending aorta, without rupture; I73.9 Peripheral vascular disease, unspecified; F17.210 Nicotine dependence, cigarettes, uncomplicated | CPT/HCPCS: 96127; 99212 ==

== ENCOUNTER 2024-06-16 13:01 | Outpatient (REF) | payer OTHER, SELFPAY ==
--- NOTE | ~2024-06-16 | US_ITS ---
EXAMINATION: US LOWER EXTREMITY (REFLUX EXAM), RIGHT CLINICAL INDICATION: Chronic venous insufficiency with right lower extremity varicose veins COMPARISON: None. TECHNIQUE: Color flow triplex imaging and compression Doppler was performed to evaluate both the deep and the superficial systems of the right lower extremity. To evaluate the superficial system, the examination was performed in the upright position. Color-flow Doppler ultrasound and compression ultrasound were utilized. In addition, maneuvers were utilized to demonstrate reflux. FINDINGS: 1. DEEP VENOUS DOPPLER ULTRASOUND: Common Femoral Vein: Compressible, normal respiratory variation and augmented flow. Femoral Vein: Compressible, normal color flow and augmentation. Popliteal Vein: Compressible, normal augmentation. Deep Reflux: There is no evidence of reflux in the deep system in either the common femoral vein, superficial femoral vein or the popliteal vein. There is no evidence of a Montero's cyst. 2. SUPERFICIAL VENOUS DOPPLER ULTRASOUND: GREAT SAPHENOUS VEIN: Saphenofemoral Junction: 0.7 cm; Reflux: 0 ms Proximal Thigh: 0.5 cm; Reflux: 0 ms Mid Thigh: 0.4 cm; Reflux: 0 ms Above Knee: 0.4 cm; Reflux: 0 ms At Knee: 0.5 cm; Reflux: 0 ms Below Knee: 0.3 cm; Reflux: 0 ms Mid Calf: 0.2 cm; Reflux: 0 ms Ankle: 0.2 cm; Reflux: 0 ms DUPLICATED MEDIAL GREAT SAPHENOUS VEIN: Diameter: None imaged Reflux: NA DUPLICATED LATERAL GREAT SAPHENOUS VEIN: Diameter: 0.4 cm Reflux: None SMALL SAPHENOUS VEIN: Saphenopopliteal Junction: 0.1 cm; Reflux: 0 ms Proximal: 0.2 cm; Reflux: 0 ms Distal: 0.2 cm; Reflux: 0 ms VEIN OF GIACOMINI: Size: NA Reflux: NA PERFORATORS: Location: None imaged Size: NA Reflux: NA VARICOSITIES: None significant. There are scattered varicosities measuring less than 3 mm within the thigh and calf off the great saphenous vein US/US venous duplex LE RT IMPRESSION: 1. Right great saphenous vein is patent without significant reflux. 2. No significant varicosities. Electronically signed by: Jac Mtz MD 06/18/2024 02:13 PM EDT
== END 2024-06-16 13:02 | disposition home or self-care (01) ==
LOC: HO.US 13:01
PROVIDERS: PCP Physician Assistant; Visit Provider Physician Assistant
DX: I73.9 Peripheral vascular disease, unspecified (principal)
CPT/HCPCS: 93971

== ENCOUNTER 2024-07-30 11:06 | Outpatient (RCR) | payer OTHER, SELFPAY ==
--- NOTE | 2024-07-02 11:49 | MHC.PT.EP ---
[facility] [place] Office [place] Office [place] Office [address] Antonette Adame [address] [phone] F: [phone] F: [phone] F: [phone] F: [phone] Physical Therapy Plan of Care Date of Evaluation: 07/02/24 Date of Surgery: Diagnosis: [id number] L shoulder Assessment: 53 y/o R-hand dominant female referred to PT with L shoulder tendinopathy. S/s consistent with dx and overlapping cervical dysfunction. Reports pain and difficulty reaching overhead, lifting, grooming, vacuuming, driving (turn wheel towards R), and sleeping on L side. Examination shows decreased accessory mobility, significant forward shoulder positioning, pain end range shoulder flexion/ abduction, decreased strength and pain. Recommend PT 1x/week for 5 weeks to address impairments, implement HEP, and optimize functional mobility. (Pt states 1x/week better as her has progressive MS and needs a lot of care at home, so not a lot of free time). Frequency and Duration: The patient will be seen 1x/week for 5 weeks Short Term Goals: 3 weeks I with HEP Pt will be able to forward flexion without end range pain Detention Goals: 5 weeks Improve L shoulder strength to 5/5 to assist with lifting I with HEP and self management of sx Improve SPADI to 60/130 (IR 79/130) Treatment Plan: Modalities to reduce pain, spasms and effusion. Manual therapy to restore motion and function. Therapeutic exercise to improve strength and flexibility. Neuromuscular re-education for posture and balance. Therapeutic activities to return to functional activities of daily living. Electronically signed by: Nila Brantley PT Please sign and return to therapist. Thank you for your referral.
--- NOTE | 2024-07-31 07:57 | MHC.PT.EP ---
[facility] [place] Office [place] Office [place] Office [address] Antonette Adame [address] [phone] F: [phone] F: [phone] F: [phone] F: [phone] Physical Therapy Plan of Care Date of Evaluation: 07/02/24 Date of Surgery: Diagnosis: [id number] L shoulder Assessment: 53 y/o R-hand dominant female referred to PT with L shoulder tendinopathy. S/s consistent with dx and overlapping cervical dysfunction. Reports pain and difficulty reaching overhead, lifting, grooming, vacuuming, driving (turn wheel towards R), and sleeping on L side. Examination shows decreased accessory mobility, significant forward shoulder positioning, pain end range shoulder flexion/ abduction, decreased strength and pain. Recommend PT 1x/week for 5 weeks to address impairments, implement HEP, and optimize functional mobility. (Pt states 1x/week better as her has progressive MS and needs a lot of care at home, so not a lot of free time). Frequency and Duration: The patient will be seen 1x/week for 5 weeks Short Term Goals: 3 weeks I with HEP Pt will be able to forward flexion without end range pain Residential Goals: 5 weeks Improve L shoulder strength to 5/5 to assist with lifting I with HEP and self management of sx Improve SPADI to 60/130 (IR 79/130) Treatment Plan: Modalities to reduce pain, spasms and effusion. Manual therapy to restore motion and function. Therapeutic exercise to improve strength and flexibility. Neuromuscular re-education for posture and balance. Therapeutic activities to return to functional activities of daily living. Electronically signed by: Nila Brantley PT Please sign and return to therapist. Thank you for your referral.
== END 2024-07-31 07:57 | disposition home or self-care (01) ==
LOC: HO.PT 11:06
PROVIDERS: PCP Physician Assistant; Visit Provider Physician Assistant
DX: M67.912 Unspecified disorder of synovium and tendon, left shoulder (principal)
CPT/HCPCS: 97110; 97140; 97161

== ENCOUNTER 2024-09-30 08:30 | Outpatient (REF) | payer OTHER, SELFPAY ==
[2024-09-30 09:36] LABS: Hematocrit 43.7 % (37.0-47.0); Hemoglobin 14.2 g/dl (12.0-16.0); Mean Corpuscular HGB Conc 32.5 g/dl (31.0-35.0); Mean Corpuscular Hemoglobin 28.6 pg (27.0-33.0); Mean Corpuscular Volume 87.9 fL (80.0-98.0); Mean Platelet Volume 9.3 fL (9.4-12.3); Platelet Count 279 X10*3/uL (160-400); Red Blood Count 4.97 X10*6/uL (4.20-5.50); Red Cell Distribution Width 12.8 % (11.0-16.0); White Blood Count 6.7 X10*3/uL (4.8-10.8)
[2024-09-30 10:52] LABS: Creatinine Urine 23.17 mg/dL; Microalbumin Urine < 5.0 mg/L
[2024-09-30 11:00] LABS: Alanine Aminotransferase 11 U/L (0-31); Albumin Level 4.5 g/dL (3.5-5.0); Alkaline Phosphatase 62 U/L (39-117); Anion Gap 10 (12-20); Aspartate Amino Transferase 16 U/L (5-31); Bilirubin Total 0.4 mg/dL (0.0-1.0); Blood Urea Nitrogen 9 mg/dL (9-16); Calcium 9.2 mg/dL (8.4-10.2); Carbon Dioxide 29 mmol/L (22-29); Chloride 105 mmol/L (96-108); Cholesterol 226 mg/dL (<200); Estimated Glomerular Filt Rate > 60; Glucose Fasting 112 mg/dL (60-99); HDL Cholesterol 39 mg/dL (>40); LDL Cholesterol Calculated 163 mg/dL (<100); Potassium 4.1 mmol/L (3.3-5.1); Sodium 140 mmol/L (135-145); Total Protein 7.1 g/dL (6.5-8.0); Triglycerides 123 mg/dL (<150)
== END 2024-09-30 08:31 | disposition home or self-care (01) ==
LOC: HO.LAB 08:30
PROVIDERS: PCP Physician Assistant; Visit Provider Physician Assistant
DX: E03.9 Hypothyroidism, unspecified (principal); E78.00 Pure hypercholesterolemia, unspecified; I10 Essential (primary) hypertension
CPT/HCPCS: 36415; 80053; 80061; 82043; 82570; 84443; 85027

== ENCOUNTER 2024-12-18 07:55 | Outpatient (REF) | payer OTHER, SELFPAY ==
[2024-12-18 09:00] LABS: Cholesterol 232 mg/dL (<200); HDL Cholesterol 32 mg/dL (>40); LDL Cholesterol Calculated 171 mg/dL (<100); Triglycerides 147 mg/dL (<150)
== END 2024-12-18 07:56 | disposition home or self-care (01) ==
LOC: HO.LAB 07:55
PROVIDERS: Physician Assistant; PCP Internal Medicine; Visit Provider Internal Medicine
DX: E78.00 Pure hypercholesterolemia, unspecified (principal)
CPT/HCPCS: 36415; 80061

== ENCOUNTER 2025-05-25 13:57 | Outpatient (REF) | payer OTHER, SELFPAY ==
--- OUTSIDE RECORDS SUMMARY | 2025-05-25 16:19 | XMS_ITS | Clinical Summary ---
Author Organization [facility] Address [address] [place] [id number] Phone Care Team Providers Care Regulatory Affairs Associate Name Role Phone Alon Reaves Primary Care Provider + Social History Tobacco Use Types Packs/Day Years Used Date Smoking Tobacco: Never Assessed Education Answer Date Recorded Are you interested in more education? Not on young e 01/12/2023 Are you concerned about learning? Not on file 01/12/2023 No 01/12/2023 No 01/12/2023 Digital Access Answer Date Recorded No 02/13/2023 No 02/13/2023 Reliable internet access at home? Not on file 02/13/2023 Device with a working camera? Not on file Comments Unknown Sex and Gender Information Value Date Recorded Sex Assigned at Not on file Legal Sex Female 3:22 PM EST Gender Identity Not on file Sexual Orientation Not on file Plan of Treatment Not on file Medical Devices Not on file Insurance [facility] [place] [address] [place] [address] [place] [address] [place] [address] [place] [address] [place] [address] [place] [address] [place] [address] ACO Care Teams Regulatory Affairs Associate Relationship Specialty Start Date End Date Alon Reaves PA [address] [place] [id number] PCP - General 09/08/20 Additional Source Comments The information contained in this document represents components of the legal health record. It is not the complete legal health record.[facility]
--- OUTSIDE RECORDS SUMMARY | 2025-05-25 16:19 | XMS_ITS | Encounter Summary ---
Author Organization [facility] Address [address] [place] [phone] Phone Care Team Providers Care Licensed Customs Broker Name Role Phone Alon Reaves Primary Care Provider + Encounter Details Date Type Department Care Team (Late st Contact Info) Description 09/08/2020 Transcribe Orders Virtual Department [address] [place] [phone] Alon Reaves PA [address] [place] [address] Exposure to SARS virus (Primary Dx) Social History Tobacco Use Types Packs/Day Years Used Date Smoking Tobacco: Never Assessed Comments Unknown Sex and Gender Information Value Date Recorded Sex Assigned at Not on file Legal Sex Female 3:22 PM EST Gender Identity Not on file Sexual Orientation Not on file documented as of this encounter Plan of Treatment Not on file documented as of this encounter Results * COVID-19 PCR Order (09/08/2020 3:26 PM EST) COVID Testing Status Sent to [facility] Micro Lab [facility] Symptomatic? NO [facility] Other 09/08/2020 3:26 PM EST 09/08/2020 5:30 PM EST us Alon AGUIRRE BODY FLUIDS AND STOOLS O RDERABLES Final Result [address] [address] documented in this encounter Visit Diagnoses Diagnosis Exposure to SARS virus- Primary Exposure to SARS-associated coronavirus documented in this encounter Additional Health Concerns Infection Onset Date Last Indicated Resolved Time CoV-Exposed Comment:Recent close contact 09/08/2020 09/08/2020 09/22/2020 1:24 AM EST documented as of this encounter Care Teams Licensed Customs Broker Relationship Specialty Start Date End Date Alon Reaves PA [facility] [place] [address] PCP - General 09/08/20 documented as of this encounter Additional Source Comments The information contained in this document represents components of the legal health record. It is not the complete legal health record.[facility]
== END 2025-05-25 13:58 | disposition home or self-care (01) ==
LOC: HO.MAMMO 13:57
PROVIDERS: Visit Provider Physician Assistant
DX: Z12.31 Encounter for screening mammogram for malignant neoplasm of breast (principal)
CPT/HCPCS: 77063; 77067

== ENCOUNTER → 2025-05-25 14:00 | Outpatient (BNV) | payer OTHER, SELFPAY | PROVIDERS: Visit Provider Internal Medicine | DX: Z12.31 Encounter for screening mammogram for malignant neoplasm of breast (principal) | CPT/HCPCS: 77063; 77067 ==

== ENCOUNTER 2025-05-29 12:51 | Outpatient (REF) | payer OTHER, SELFPAY ==
--- NOTE | ~2025-05-29 | XR_ITS ---
EXAMINATION: XR SHOULDER 2 OR MORE VIEWS LEFT HISTORY: M25.512 - Pain in left shoulder COMPARISON: Comparison is made with the prior examination dated 05/06/2024. FINDINGS: Four views of the left shoulder are submitted. Osseous mineralization is normal. There is no fracture or dislocation. The glenohumeral joint is maintained. There is mild narrowing of the AC joint. Again seen is a linear soft tissue calcification adjacent to the greater tuberosity of the humerus which is likely related to the rotator cuff. XR/XR shoulder LT min 2V IMPRESSION: Mild narrowing of the AC joint. Probable rotator cuff calcification. Electronically signed by: Efe Curiel MD 05/29/2025 01:15 PM EDT
--- NOTE | ~2025-05-29 | XR_ITS ---
EXAMINATION: XR SHOULDER, RIGHT CLINICAL INFORMATION: M25.511 - Pain in right shoulder COMPARISON: Correlated to chest x-ray dated October 13, 2021 TECHNIQUE: AP external rotation, Grashey, scapular Y, and axillary views of the right shoulder. FINDINGS: No acute cortical disruption or malalignment. Soft tissue calcifications adjacent to the greater tuberosity of the humerus best seen on the Y-view projection at the posterior aspect of the humerus. XR/XR shoulder RT min 2V IMPRESSION: Synovial chondromatosis Electronically signed by: Jono Whitney MD 05/29/2025 01:15 PM EDT
--- OUTSIDE RECORDS SUMMARY | 2025-05-29 15:13 | XMS_ITS | Encounter Summary ---
Author Organization [facility] Address [address] [place] [address] Phone Care Team Providers Care Tissue Rewinder Name Role Phone Alon Reaves Primary Care Provider + Encounter Details Date Type Department Care Team (Late st Contact Info) Description 09/08/2020 Transcribe Orders Virtual Department [address] [place] [phone] Alon Reaves PA [address] [place] [address] Exposure to SARS virus (Primary Dx) Social [...] PM EST) COVID Testing Status Sent to [facility] Symptomatic? NO [facility] Other 09/08/2020 3:26 PM EST 09/08/2020 5:30 PM EST us Alon AGUIRRE BODY FLUIDS AND STOOLS O RDERABLES Final Result [address] [address] documented in this encounter Visit Diagnoses Diagnosis Exposure to SARS virus- Primary Exposure to SARS-associated coronavirus documented in this encounter Additional Health Concerns Infection Onset Date Last Indicated Resolved Time CoV-Exposed Comment:Recent close contact 09/08/2020 09/08/2020 09/22/2020 1:24 AM EST documented as of this encounter Care Teams Tissue Rewinder Relationship Specialty Start Date End Date Alon Reaves PA [facility] [place] [address] PCP - General 09/08/20 documented as of this encounter Additional Source Comments The information contained in this document represents components of the legal health record. It is not the complete legal health record.[facility]
--- OUTSIDE RECORDS SUMMARY | 2025-05-29 15:13 | XMS_ITS | Clinical Summary ---
Author Organization [facility] Address [address] [place] [address] Phone Care Team Providers Care Irrigation Service Technician Name Role Phone Alon Reaves Primary Care [...] file Medical Devices Not on file Insurance [facility] [place] [address] [place] [address] [place] [address] [place] [address] [place] [address] [place] [address] [place] [address] [place] [address] ACO Care Teams Irrigation Service Technician Relationship Specialty Start Date End Date Alon Reaves PA [address] [place] [address] PCP - General 09/08/20 Additional Source Comments The information contained in this document represents components of the legal health record. It is not the complete legal health record.[facility]
== END 2025-05-29 12:52 | disposition home or self-care (01) ==
LOC: HO.XRAY 12:51
PROVIDERS: PCP Physician Assistant; Visit Provider Physician Assistant
DX: M25.512 Pain in left shoulder (principal); M25.511 Pain in right shoulder
CPT/HCPCS: 73030

== ENCOUNTER → 2025-05-29 12:53 | Outpatient (BNV) | payer OTHER, SELFPAY | PROVIDERS: PCP Physician Assistant; Visit Provider Radiology Diagnostic Radiology | DX: M19.012 Primary osteoarthritis, left shoulder (principal); M67.811 Other specified disorders of synovium, right shoulder | CPT/HCPCS: 73030 ==

== ENCOUNTER 2025-06-08 11:40 | Outpatient (AMB) | payer OTHER, SELFPAY ==
--- NOTE | 2025-06-08 11:51 | A.OFFVIS_ITS ---
Vital Signs 06/08/25 11:56 Height 5 ft Weight 154 lb BMI 30.1 Intake Visit Reasons: new prob - Bilat shoulder pain Intake Note: Stella is a 54 year old female right hand dominant who presents with complaints of bilateral shoulder pains, left greater than right. The patient states that her symptoms have gotten worse over the last few months in spite of continued non operative treatments. She did go to 2 sessions of formal physical therapy but did not have a good experience at that location. She denies any weakness. She has taken Tylenol which gives her mild relief. She wishes to hold off on surgery if at all possible. Allergies Rovamycin Allergy (Severe, Uncoded 06/09/24 11:22) Unknown Medication List - Last Reconciled 06/08/25 by Jose Larry MD alprazolam 0.25 mg PO BEDTIME PRN 7 days bisoprolol fumarate 5 mg PO DAILY 90 days compr.stocking,knee,long,large As directed compr.stocking,knee,long,small (T.E.D. Knee Skkuen-X-Zpxr misc) As directed-need for 10-15 mm Hg compression diclofenac sodium 75 mg PO BID PRN 15 days ibuprofen 400 mg PO TID PRN Held on 04/06/22. 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 Obesity (BMI 30-39.9) GERD (gastroesophageal reflux disease) Hypothyroidism HTN (hypertension) HLD (hyperlipidemia) Surgical History History of section History of cholecystectomy History of carpal tunnel release Family History Father Prostate cancer Mother Myocardial infarction Brother CAD (coronary artery disease) Social History (Updated 06/08/25 @ 11:57 by Manasa Carpio) Housing: Apartment Alcohol intake: never Patient Tobacco Use Status: Current everyday Tobacco user Tobacco use type: Cigarette Cigarette Packs Per Day: 1 Years Smoked: (onset 18yo, 1ppd x 33yrs, 30pyh) e-Cigarette/Vaping Use: Never Used Second Hand Smoke Exposure: Yes service: No Current occupational status: employed 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* Cognitive needs: No Hearing needs: No Vision needs: No Physical Exam Vital Signs: BMI result Body Mass Index 30.1 Const Other: Well-nourished well-developed very friendly female awake alert and oriented x3 in no acute distress Extrem Other: Bilateral shoulder examination shows forward flexion to 160 degrees, external rotation to 40 degrees, 4+ out of 5 strength with supraspinatus testing, positive impingement signs, no instability Results Reviewed Results Reviewed: X-rays of the patient's bilateral shoulder show severe acromioclavicular joint narrowing, type 2 acromion; calcium deposit in bilateral shoulders, right greater than left Assessment & Plan Assessment & Plan (1) Impingement syndrome of both shoulders: Code(s): M75.41 - Impingement syndrome of right shoulder; M75.42 - Impingement syndrome of left shoulder Category: Medical Plan Stella presents with bilateral shoulder pains, left greater than right, due to impingement syndrome, acromioclavicular joint arthritis and calcific tendinitis. I had a lengthy discussion with the patient regarding the treatment options. She wishes to hold off on an injection for now. I did give her a prescription to go to formal physical therapy. The do's and don'ts of lifting were discussed at length with the patient. She will contact me prior to her follow-up appointment in 2-3 months should her symptoms worsen in any way. Feel free to call me at any time should questions regarding her orthopedic management arise. I spent 20 minutes in reviewing the patient's records and imaging studies, seeing the patient and documenting in the medical record. Orders: Orders PT Evaluation and Treatment Today M75.41 - Impingement syndrome of right shoulder, M75.42 - Impingement syndrome of left shoulder Coding Level of Care Code New Pt Level 3 (08770) Complex EM visit Add On G2211 Diagnoses Impingement syndrome of both shoulders M75.41; M75.42
[2025-06-08 11:56] VITALS: BMI 30.1
--- OUTSIDE RECORDS SUMMARY | 2025-06-08 14:24 | XMS_ITS | Encounter Summary ---
Author Organization [facility] Address [address] [place] [address] Phone Care Team Providers Care Insulation Supervisor Name Role Phone Alon Reaves Primary Care Provider + Encounter Details Date Type Department Care Team (Late st Contact Info) Description 09/08/2020 Transcribe Orders Virtual Department [address] [place] [phone] Alon Reaves PA [address] [place] [address] Exposure to SARS virus (Primary Dx) Social [...] PM EST) COVID Testing Status Sent to [facility] Micro Lab [facility] Symptomatic? NO [facility] Other 09/08/2020 3:26 PM EST 09/08/2020 5:30 PM EST us Alon AGUIRRE BODY FLUIDS AND STOOLS O RDERABLES Final Result [address] [address] documented in this encounter Visit Diagnoses Diagnosis Exposure to SARS virus- Primary Exposure to SARS-associated coronavirus documented in this encounter Additional Health Concerns Infection Onset Date Last Indicated Resolved Time CoV-Exposed Comment:Recent close contact 09/08/2020 09/08/2020 09/22/2020 1:24 AM EST documented as of this encounter Care Teams Insulation Supervisor Relationship Specialty Start Date End Date Alon Reaves PA [facility] [place] [address] PCP - General 09/08/20 documented as of this encounter Additional Source Comments The information contained in this document represents components of the legal health record. It is not the complete legal health record.[facility]
--- OUTSIDE RECORDS SUMMARY | 2025-06-08 14:24 | XMS_ITS | Clinical Summary ---
Author Organization [facility] Address [address] [place] [address] Phone Care Team Providers Care Lap Polisher Name Role Phone Alon Reaves Primary Care [...] file Medical Devices Not on file Insurance [facility] [place] [address] [place] [address] [address] [place] [address] [place] [address] [place] [address] [place] [address] [place] [address] ACO Care Teams Lap Polisher Relationship Specialty Start Date End Date Alon Reaves PA [address] [place] [address] PCP - General 09/08/20 Additional Source Comments The information contained in this document represents components of the legal health record. It is not the complete legal health record.[facility]
== END 2025-06-08 12:31 | disposition home or self-care (01) ==
LOC: HO.HOS 11:40
PROVIDERS: PCP Physician Assistant; Visit Provider Orthopaedic Surgery
DX: M75.41 Impingement syndrome of right shoulder (principal); M75.42 Impingement syndrome of left shoulder
CPT/HCPCS: 99203

== ENCOUNTER → 2025-06-08 11:40 | Outpatient (BNVA) | payer OTHER, SELFPAY | PROVIDERS: PCP Physician Assistant; Visit Provider Orthopaedic Surgery | DX: M25.512 Pain in left shoulder (principal); M25.511 Pain in right shoulder; M75.41 Impingement syndrome of right shoulder; M75.42 Impingement syndrome of left shoulder | CPT/HCPCS: 99202 ==

== ENCOUNTER 2025-06-23 10:49 | Outpatient (REF) | payer OTHER, SELFPAY ==
--- NOTE | ~2025-06-23 | MM_ITS ---
EXAMINATION: MM DIAGNOSTIC DIGITAL BREAST TOMOSYNTHESIS, RIGHT Limited right breast ultrasound. CLINICAL INFORMATION: Call back from screening for focal asymmetry in the upper outer breast. COMPARISON: Mammography: [facility] on PACS. TECHNIQUE: Digital breast tomosynthesis is performed in both the craniocaudal and mediolateral oblique views along with computer-aided detection (CAD). Synthesized 2D images are generated from the tomosynthesis. FINDINGS: The breasts are heterogeneously dense, which may obscure small masses. Asymmetry in the superior breast and asymmetry in the lateral breast localizing lower outer quadrant partially effaces on additional imaging projections. No suspicious calcifications or other abnormal findings. Targeted color Doppler ultrasound scanning from 7-2 o'clock in the lateral breast and superior breast demonstrates a probably incidental hypoechoic oval circumscribed solid mass versus complicated cyst at 11:00 3 cm from the nipple measuring 5 x 4 x 5 mm. Otherwise there is normal fibronodular breast tissue. MM/MM tomosynthesis added views R IMPRESSION: Asymmetries in the superior breast and lateral breast which partially effaces and without sonographic correlates. Recommend 6 month follow-up mammography for further evaluation of stability. Incidental hypoechoic solid mass versus complicated cyst at 11:00 3 cm from the nipple on ultrasound. Recommend 6 month follow-up ultrasound for further evaluation of stability. ASSESSMENT: BI-RADS Category 3: Probably benign RECOMMENDATION: 6 Month F/U Results were provided to the patient at time of visit by the technologist. This patient's information was entered into a reminder system with a target due date for their next mammogram. Electronically signed by: Gisell Franco DO 06/23/2025 12:25 PM EDT
--- OUTSIDE RECORDS SUMMARY | 2025-06-23 13:14 | XMS_ITS | Encounter Summary ---
Author Organization [facility] Address [address] [place] [address] Phone Care Team Providers Care Foundry Finisher Name Role Phone Alon Reaves Primary Care Provider + Encounter Details Date Type Department Care Team (Late st Contact Info) Description 09/08/2020 Transcribe Orders Virtual Department [address] [place] [phone] Alon Reaves PA [address] [place] [address] Exposure to SARS virus (Primary Dx) Social [...] PM EST) COVID Testing Status Sent to [facility] Lab [facility] Symptomatic? NO [facility] Other 09/08/2020 3:26 PM EST 09/08/2020 5:30 PM EST us Alon AGUIRRE BODY FLUIDS AND STOOLS O RDERABLES Final Result [address] [address] documented in this encounter Visit Diagnoses Diagnosis Exposure to SARS virus- Primary Exposure to SARS-associated coronavirus documented in this encounter Additional Health Concerns Infection Onset Date Last Indicated Resolved Time CoV-Exposed Comment:Recent close contact 09/08/2020 09/08/2020 09/22/2020 1:24 AM EST documented as of this encounter Care Teams Foundry Finisher Relationship Specialty Start Date End Date Alon Reaves PA [facility] [place] [address] PCP - General 09/08/20 documented as of this encounter Additional Source Comments The information contained in this document represents components of the legal health record. It is not the complete legal health record.[facility]
--- OUTSIDE RECORDS SUMMARY | 2025-06-23 13:14 | XMS_ITS | Clinical Summary ---
Author Organization [facility] Address [address] [place] [phone] Phone Care Team Providers Care Filtration Plant Operator Name Role Phone Alon Reaves Primary Care [...] file Medical Devices Not on file Insurance [facility] [place] [address] [place] [address] [place] [address] [place] [address] [place] [address] [place] [address] [place] [address] [place] [address] ACO Care Teams Filtration Plant Operator Relationship Specialty Start Date End Date Alon Reaves PA [address] [place] [address] PCP - General 09/08/20 Additional Source Comments The information contained in this document represents components of the legal health record. It is not the complete legal health record.[facility]
== END 2025-06-23 10:50 | disposition home or self-care (01) ==
LOC: HO.MAMMO 10:49
PROVIDERS: PCP Physician Assistant; Visit Provider Physician Assistant
DX: N64.89 Other specified disorders of breast (principal)
CPT/HCPCS: 76642; 77061; 77065

== ENCOUNTER → 2025-06-23 11:00 | Outpatient (BNV) | payer OTHER, SELFPAY | PROVIDERS: PCP Physician Assistant; Visit Provider Internal Medicine | DX: R92.8 Other abnormal and inconclusive findings on diagnostic imaging of breast (principal) | CPT/HCPCS: 76642; 77061; 77065 ==